=== PATIENT | male | born 1955 | race Caucasian/White ===

== ENCOUNTER 2017-12-22 14:20 | Outpatient (REF) | payer BC, SELFPAY ==
[2017-12-22 21:11] LABS: HCT 43.5 % (40.0-50.0); HGB 14.7 g/dL (13.5-17.5); Mean Corp. HGB Concentration 33.8 g/dL (32.0-36.0); Mean Corpuscular Hemoglobin 29.8 pg (27.0-33.0); Mean Corpuscular Volume 88.1 fL (80-95); Mean Platelet Volume 10.1 fL (8.0-11.0); Platelet Count 368 x1000/uL (130-400); RBC 4.94 m/cumm (4.50-6.00); RBC Distribution Width 13.2 % (11.8-14.1); White Blood Cell Count 5.81 k/cumm (4.4-10.8)
[2017-12-22 21:28] LABS: Prothrombin Time 9.6 sec (9.3-10.8)
[2017-12-22 21:44] LABS: ALT 37 U/L (12-78); AST 18 U/L (15-37); Albumin 4.2 g/dL (3.4-5.0); Alkaline Phosphatase 75 U/L (46-116); Anion Gap 10.1 mmol/L (3-11); BUN 18 mg/dL (7-18); Bilirubin, Total 0.5 mg/dL (0.2-1.0); CO2 25.9 mmol/L (21.0-32.0); Chloride 103 mmol/L (98-107); Glucose 89 mg/dL (70-100); Potassium 4.7 mmol/L (3.5-5.1); Sodium 139 mmol/L (136-145); Total Protein 7.5 g/dL (6.4-8.2)
[2017-12-24 13:26] LABS: Hepatitis C Ab w Rflx HCV PCR Negative (NEGAT)
== END 2017-12-22 14:40 ==
LOC: NCHCN 14:20
PROVIDERS: Visit Provider Internal Medicine
DX: Z89.419 Acquired absence of unspecified great toe (principal); Z11.59 Encounter for screening for other viral diseases; Z01.84 Encounter for antibody response examination; Z00.00 Encounter for general adult medical examination without abnormal findings
CPT/HCPCS: 80053; 85027; 86803; 85610; 85730

== ENCOUNTER 2017-12-25 11:16 | Outpatient (REF) | payer BC, SELFPAY ==
[2017-12-25 12:16] LABS: PTT Activated 25.4 sec (21.0-31.4)
== END 2017-12-25 11:36 ==
LOC: NCHCN 11:16
PROVIDERS: Visit Provider Internal Medicine
DX: Z89.419 Acquired absence of unspecified great toe (principal)
CPT/HCPCS: 85730

== ENCOUNTER 2019-04-22 08:28 | Outpatient (CLI) | payer BC, SELFPAY ==
[2019-04-22 10:27] LABS: TSH (W/Ref FT4) 0.95 uIU/mL (0.36-3.74)
[2019-04-22 21:55] LABS: T3,Free 3.3 pg/mL (2.8-5.3)
== END 2019-04-22 08:48 ==
PROVIDERS: PCP Internal Medicine; Visit Provider Physical Therapy Assistant
DX: E04.9 Nontoxic goiter, unspecified (principal)
CPT/HCPCS: 36415; 84443; 84481

== ENCOUNTER 2019-04-28 01:30 | Outpatient (CLI) | payer BC, SELFPAY ==
--- NOTE | 2019-04-28 12:37 | DI.US_ITS ---
EXAM: US THYROID CLINICAL HISTORY: Enlarged thyroid, difficulty swallowing E04.9 TECHNIQUE: Ultrasound performed using standard protocol. COMPARISON: No exams were available for comparison FINDINGS: Thyroid ultrasound was performed according to the usual protocol. Right thyroid lobe measures 43 x 2 0 x 14 millimeters. Left thyroid lobe measures 44 x 17 x 13 millimeters. The isthmus is about 7 mil limeters in thickness. Thyroid tissue is heterogeneous. No significant mass lesion identified. 6 millimeter focus of high echogenicity is noted in the medial inferior left thyroid lobe. IMPRESSION: Heterogeneous appearance of thyroid. Follow-up ultrasound suggested in 12 months to re-evaluate 6 mi llimeter echogenic focus of the left thyroid lobe.
== END 2019-04-28 01:50 ==
PROVIDERS: PCP Internal Medicine; Visit Provider Physical Therapy Assistant
DX: E04.9 Nontoxic goiter, unspecified (principal); R13.10 Dysphagia, unspecified
CPT/HCPCS: 76536

== ENCOUNTER 2019-05-09 09:04 | Day surgery (SDC) | payer BC, SELFPAY ==
--- NOTE | 2019-05-09 07:09 | W.COLOREPORT ---
Date of service: 05/09/19 Time of Service: 10:24 Colonoscopy Report Date of procedure: 05/09/19 Pre-op diagnosis general: Hx of polyps and Hx of Kaye's Post-op diagnosis procedure note: same Procedure: 1. EGD with bx 2. Colonoscopy with polypectomy Surgeon: Reva Petty Anesthesia proc note operative: other (General/ ASA 3/Yessica Gaona, JULISA) Estimated blood loss (mL): 5 Pathology: other (Gastric Bx, Ge junction bx, transverse polyp, sigmoid polyps x5) Complications: None Disposition: same day Indications: 64 y/o male with history of GERD presents for colonoscopy screening pre-op. His last screening was in 2007, which was remarkable for polyps. He denies a family history of colon cancer. He denies any changes in bowel habits including bloody or black tarry stools, abdominal pain, diarrhea or constipation. He denies constitutional symptoms. Denies use of marijuana or any other recreational or illegal drugs. EGD in 2010 was remarkable for Barretts esophagus. He describes feeling a lump in his throat for the past 6 months. He reports this makes swallowing uncomfortable. He denies any difficulty swallowing food or liquids or the sensation of choking. He denies having any pain in this area. Prep: Miralax/Dulcolax Procedure Start Time: 10:24 Procedure End Time: 11:14 Retraction Time: 27 minutes Findings: Upper- mild gastritis and evidence of reflux. Grossely there is some Kaye's identified as well Lower: multiple small polyps Procedure Description: After informed consent was obtained the patient was take to the procedure room and placed in a supine position. Monitors were applied and a time out was done. The patients name, date of , procedure type, allergies to medications and metal in their body was reviewed. A bite block was placed and the patient was sedated. Once sedated and comfortable the gastroscope was advanced through the oropharynx which was grossly normal into the esophagus. The proximal and mid-esophagus were normal. Peristalsis was noted. In the distal esophagus there was inflammation noted. The scope was advanced into the stomach and through the pylorus into the 3rd portion of the duodenum. The duodenum was noted to be normal. The scope was retracted back into the stomach. Mild inflammation was noted in the antrum. Biopsies were done to rule out H. pylori. There were no ulcers. The scope was retro-flexed. The cardia and fundus were noted to be normal. There was no hiatal hernia noted. The scope was retracted back into the esophagus and biopsies were done of the GE junction to rule out Kaye's. The Z line was irregular. The GE junction was at 40 cm. While the patient was still sedated they were placed in a left decubitous position. A rectal exam was done. External exam was normal. Internal exam revealed a normal sphincter tone and no palpable masses. I could not feel the prostate. The scope was then introduced and retro-flexed. No internal hemorrhoids were identified. The scope was then advanced to the cecum without difficulty. The TI and appendiceal orifice were identified. The prep was suboptimal. There was a lot of residual liquid stool and a lot of seeds. 1 L was used to irrigate the liquid stool. The scope was then slowly retracted over 27 minutes back into the rectum. Polyps were removed with cold forceps in the Transverse colon and sigmoid colon with cold forceps. The scope was removed and the patient was woken up and taken back to Same day surgery in stable condition. The patient tolerated the procedure well and there were no immediate complications. Follow up: 2 weeks in the office 3-5 years for the colonoscopy
--- NOTE | 2019-05-09 07:11 | W.PM.DSUDISC ---
Discharge Plan Disposition Patient Disposition: HOME Condition: Good Discharge Details Reason For Visit: Hx of polyps and Hx of Kaye's Attending Provider: Reva Petty Primary Care Provider: Rodney Cooley Home Meds and New Rx's Prescriptions: New omeprazole 40 mg capsule,delayed release(DR/EC) 40 mg PO DAILY Qty: 30 RF: 0 Continued quetiapine [Seroquel] 100 MG tablet 100 mg PO HS RF: 0 meloxicam 15 MG tablet 15 mg PO DAILY RF: 0 sumatriptan succinate 50 MG tablet 50 mg PO ONCE RF: 0 verapamil 180 MG capsule,ext rel. pellets 24 hr 180 mg PO HS RF: 0 acetaminophen 325 MG capsule 650 - 975 mg PO qpm prn RF: 0 COMBIVENT RESPIMAT INHAL SPRAY 4 GM AER.W.ADAP 1 puff AD QID RF: 0 gabapentin 300 mg capsule 300 mg PO TID RF: 0 albuterol sulfate [ProAir HFA] 90 mcg/actuation HFA aerosol inhaler 1 puff IH ONCE RF: 0 Discontinued polyethylene glycol 3350 17 gram/dose powder 238 g PO ONCE Qty: 238 RF: 0 bisacodyl [Dulcolax (bisacodyl)] 5 mg tablet,delayed release (DR/EC) 5 mg PO ONCE Qty: 4 RF: 0 ibuprofen 600 MG tablet 600 mg PO PRN RF: 0 omeprazole 20 MG capsule,delayed release(DR/EC) 20 mg PO HS RF: 0 Discharge Instructions Instructions: Kaye Esophagus (GEN), Colorectal Polyps (DC) Additional Instructions: Findings: 1. Inflammation of the esophagus 2. Polyps x6 Follow up: 3-5 years Other: A new Rx for Omeprazole 40 mg was sent in to your pharmacy. Take 40 mg daily x 30 days Avoid Ibuprofen on top of Meloxicam Please call if you develop: fevers >101.5 Nausea or Vomiting Abdominal pain that is not transient DAY SURGERY UNIT POST ENDOSCOPY INSTRUCTIONS 1. Because there will be medication in your system for the next 24 hours, you may feel a little sleepy. Your coordination will be affected. Therefore: a. Do not drive or operate dangerous equipment for 24 hours. b. Do not drink alcohol beverages for 24 hours (not even beer). c. Plan to go home and rest for the day. 2. Generally there are no restrictions on your activity after a day or so has gone by, but you may feel a bit fatigued for a few days. 3 After you arrive home you may have a light meal and return to a normal diet as you can tolerate it without feeling sick to your stomach. 4. After surgery, you may feel pain or discomfort. This should be only transient, but if it persists please contact your doctor. 5. If there are any questions regarding the findings of your procedure, please feel free to contact your doctor. 6. If you are unable to contact your doctor with a problem, contact the hospital at [phone]. 7. Continue all your regular medications unless directed otherwise. I understand the above instructions and have no questions. Signature of Patient or Responsible Adult Escort Date/Time Name of Responsible Adult Escort Signature of Nurse Date/Time Activity:: Activity as Tolerated Diet:: As Tolerated Discharge Orders Discharge Orders: Discharge Order (Routine); Ordered 05/09/19 Ordered By: Reva Petty
[2019-05-09 09:29] VITALS: BP 121/82; PULSE 75; RESP 18; TEMP 37; O2SAT 93
[2019-05-09] MEDS: Lactated Ringers 1,000 ML 80 ML IV (09:59)
--- NOTE | 2019-05-09 10:30 | BOWEL_PTH ---
PATIENT: Jm Albrecht LOC: [facility] U#:[id number] AGE/SX: 64/M ROOM: RE05/09/[address]: Reva Petty MD : [id number] BED: DIS: 05/09/2019 SPEC #: [id number] RECD: 05/09/19 12:42 STATUS: MICHELLE REQ #: [id number] CLAIRE: 05/09/19 10:[address]: Reva Petty DEPT: Surgical Specimen RECD BY: Ashleigh Teixeira ENTERED: 05/09/19 12:44 SP TYPE: Bowel OTHR DR: Rodney Cooley Tissues: 1 - STOMACH BIOPSY 2 - ESOPHAGUS BIOPSY 3 - BIOPSY BOWEL 4 - BIOPSY BOWEL Procedures: GROSS AND MICRO LEVEL 4 Comments: [id number]
[2019-05-09 12:06] VITALS: BP 105/59; PULSE 59; RESP 16; TEMP 36; O2SAT 96
== END 2019-05-09 12:24 | disposition home or self-care (01) ==
LOC: SUR 09:04
PROVIDERS: PCP Internal Medicine; Visit Provider Surgery
PROC: (CPT 45380; principal; 2019-05-09 09:45)
DX: Z12.11 Encounter for screening for malignant neoplasm of colon (principal); D12.5 Benign neoplasm of sigmoid colon; K63.5 Polyp of colon; K22.70 Barrett's esophagus without dysplasia; J44.9 Chronic obstructive pulmonary disease, unspecified; K21.9 Gastro-esophageal reflux disease without esophagitis
CPT/HCPCS: 45380; 43239; 88305; J2704

== ENCOUNTER 2019-05-25 02:20 | Outpatient (CLI) | payer BC, SELFPAY ==
--- NOTE | 2019-05-25 | PFT_ITS ---
PULMONARY FUNCTION TEST REPORT Patient - Jm Albrecht DATE OF SERVICE May 25, 2019 REQUESTING PROVIDER Rodney Cooley M.D. INTERPRETATION OF STUDY Spirometry shows moderately severe obstructive airways disease with significant bronchodilator response. LUNG VOLUMES - Lung volumes show no evidence of restriction. There is moderate hyperinflation and air trapping. DIFFUSION CAPACITY- Normal. AIRWAY RESISTANCE - Normal. IMPRESSION Moderately severe obstructive airways disease with significant bronchodilator response. This is associated with moderate hyperinflation and air trapping. When this study was compared to previous one from 03/21/16, the patient has a total of 760 cc decline in FVC. FEV1 has declined by 1010 cc. This is a significant interval decline. Clinical correlation recommended. Amber Gonzalez M.D. KRISTAL/ T- 05/27/19
[2019-05-25] MEDS: Inhaler, Assist Device 1 EACH MC (11:00)
[2019-05-25] MEDS: Albuterol HFA 18 GM 200 PUFF INH IH (11:00)
== END 2019-05-25 02:40 ==
PROVIDERS: PCP Internal Medicine; Visit Provider Internal Medicine
DX: R05 Cough (principal); J98.8 Other specified respiratory disorders
CPT/HCPCS: 94060; 94726; 94729

== ENCOUNTER 2019-06-03 16:53 | Outpatient (REF) | payer BC, SELFPAY ==
[2019-06-03 19:53] LABS: BUN 24 mg/dL (7-18); CREATININE 0.91 mg/dL (0.70-1.30); Calcium 8.4 mg/dL (8.5-10.1); Chloride 106 mmol/L (98-107); Glucose 130 mg/dL (74-106); NT-proBNP 11 pg/mL (<300); Potassium 4.2 mmol/L (3.5-5.1); Sodium 143 mmol/L (136-145)
[2019-06-03 19:57] LABS: Hemoglobin A1C 5.9 % (3.8-5.6)
[2019-06-06 10:26] LABS: IgE 29 IU/mL (<158)
== END 2019-06-03 17:13 ==
LOC: NCHCN 16:53
PROVIDERS: PCP Internal Medicine; Visit Provider Internal Medicine
DX: Z00.00 Encounter for general adult medical examination without abnormal findings (principal); R06.09 Other forms of dyspnea; E66.9 Obesity, unspecified; R73.9 Hyperglycemia, unspecified
CPT/HCPCS: 80048; 82785; 83036; 83880

== ENCOUNTER 2019-06-10 02:16 | Outpatient (CLI) | payer BC, SELFPAY ==
[2019-06-10] MEDS: Omnipaque 350 MG/ML 100 ML BTL IJ (13:56)
--- NOTE | 2019-06-10 14:25 | DI.CT_ITS ---
EXAM: CT CHEST W CLINICAL HISTORY: EXERTIONAL DYSPNEA, R06.09; CHRONIC COUGH, R05 TECHNIQUE: Imaging Protocol: Axial computed tomography images with coronal and sagittal reformatted images were created and reviewed CONTRAST MATERIAL: Intravenous: Omnipaque 350 Contrast volume:70 mL. COMPARISON: CHEST - LUNG CANCER SCREENING from 03/13/2016 FINDINGS: Tracheobronchial tree: Patent where visualized. Mediastinum and Mary: No dominant adenopathy or fluid collection. Pulmonary parenchyma: There is scarring or atelectasis in the left lingula and the lower lobes bilate rally. No focal consolidating infiltrates are present. Pleura: No effusion or pneumothorax. Heart: The heart is not dilated. Mild coronary artery calcification. No pericardial effusion. Aorta: Thoracic aorta non-dilated. Atherosclerosis. Upper abdomen: Unremarkable. Lymph nodes: Within normal limits. Bones: Degenerative changes. IMPRESSION: No acute pulmonary process. DATA REPOSITORY: All CT scans at this facility are submitted to the National Radiology Data Registry (NRDR) Dose Index Registry (DIR) with the [employer] (ACR). RADIATION OPTIMIZATION: All CT scans at this facility use at least one of these dose optimization te chniques: automated exposure control; mA and/or kV adjustment per patient size (includes targeted exa ms where dose is matched to clinical indication); or iterative reconstruction.
== END 2019-06-10 02:36 ==
PROVIDERS: PCP Internal Medicine; Visit Provider Internal Medicine
DX: R06.09 Other forms of dyspnea (principal); R05 Cough
CPT/HCPCS: 71260; J3490

== ENCOUNTER 2019-06-16 00:35 | Outpatient (CLI) | payer BC, SELFPAY ==
--- NOTE | 2019-06-16 | DI.US_ITS ---
APPROVED REPORT EXAM: Comprehensive 2D, Doppler, and color-flow Echocardiogram Patient Location: Out-Patient [facility] Acoustic Analyst: Jacqueline Dickson RDCS (AE) Indications: Exertional Dyspnea Other Information Study Quality: Adequate. Technically limited study due to body habitus. Conclusion Left Ventricle : The left ventricle is normal size. The left ventricular systolic function is normal. The left ventricular ejection fraction is within the normal range. There is normal left ventricular wall thickness. There is normal LV segmental wall motion. The left ventricular diastolic function is normal. LVEF is 55-60%. Right Ventricle : The right ventricle is normal size. The right ventricular systolic function is norm al. Atria : The left atrium size is normal. The right atrium size is normal. Valves: There are no hemodynamically significant valvular lesions. Great Vessels : IVC is normal in size and collapses >50% with inspiration. There is none of tricuspi d regurgitation to estimate RVSP. There is no prior echocardiogram available for comparison. Wall motion Left Ventricle The left ventricle is normal size. The left ventricular systolic function is normal. The left ventric ular ejection fraction is within the normal range. There is normal left ventricular wall thickness. T here is normal LV segmental wall motion. The left ventricular diastolic function is normal. There is no ventricular septal defect visualized. LVEF is 55-60%. Right Ventricle The right ventricle is normal size. The right ventricular systolic function is normal. Atria The left atrium size is normal. The right atrium size is normal. The interatrial septum is intact wit h no evidence for an atrial septal defect. Aortic Valve Aortic valve is trileaflet. There is no aortic valvular stenosis. No aortic regurgitation is present. Mitral Valve The mitral valve is normal in structure. No evidence of mitral valve stenosis. Trace mitral regurgita tion. Tricuspid Valve The tricuspid valve is normal in structure. There is no tricuspid valve stenosis. Trace tricuspid reg urgitation. Pulmonic Valve Pulmonic valve is not well visualized. There is no pulmonic valvular stenosis. Trace pulmonic regurgi tation. Great Vessels The aortic root is normal in size. The ascending aorta is normal in size. IVC is normal in size and c ollapses >50% with inspiration. There is none of tricuspid regurgitation to estimate RVSP. Pericardium There is no pericardial effusion. 2D Dimensions IVSD d PLAX 1.08 cm M: 0.6-1.2 LV Vol A2C d MOD 125.0 mL LVPW d PLAX 1.05 cm M: 0.6 - 1.2 LV Vol A4C d MOD 93.0 mL LVID d PLAX 4.68 cm M: 4.2 - 5.8 LA vol/ BSA A2C s A-L 29.2 mL/m2 LVDs 3.40 cm M: 2.5 - 4.0 LA vol/ BSA A4C s A-L 17.9 mL/m2 Ao Root d 3.15 cm M: 3.1 - 3.7 LA Vol/ BSA Biplane s A-L 24.8 mL/m2 RA Area A4C 13.41 cm2 LA Area A4C s MOD 14.64 cm2 RA Vol/ BSA A4C s A-L 16.8 mL/m2 LA Area A2C s MOD 20.30 cm2 Ao Asc Diam d 3.81 cm M: 2.6 - 3.4 LV EF A4C MOD 59.8 % LV EF Teichholz 51.7 % LV EF A2C MOD 55.2 % LVEF (Castañeda's) 57.27 % M: 52 - 72 LV EF Biplane MOD 57.3 % LV Volume 79.23 mL M: 62 - 150 LV Volume Index 35.52 mL/m2 M: 34 - 74 LV Vol Biplane MOD 109.4 mL FS 26.40 % M-Mode TAPSE 2.44 cm (M/F) <1.7 LV Diastology MV E' medial 0.083 (>0.07 m/s) E/A Ratio 1.1 LV E/e MED 9.95 (<14) MV E Vmax 0.83 (0.4-1.3 m/s) MV E' lateral 0.137 (>0.1 m/s) MV A Vmax 0.75 (0.4-1.3 m/s) LV E/e LAT 6.00 (<14) MV E/A Ratio 1.05 MV E/E' medial 9.96 MV E/E' lateral 6.05 Aortic Valve LVOT Area 2.82 cm2 AoV Area Vmax 2.31 cm2 LVOT Vmax 1.23 m/s AoV Area/ BSA (Vmax) 1.04 cm2/m2 LVOT Mean Marcus. 0.77 m/s CARROL Mean Marcus. 2.19 cm2 LVOT Peak Grad 6.0 mmHg CARROL Mean Marcus. Index 0.98 cm2/m2 LVOT Mean Grad 2.9 mmHg LVOT VTI 0.213 m LVOT Diam s 1.85 cm (M/F) 1.5-2.5 AoV Vmax 1.50 (0.5-1.3 m/s) Velocity Ratio 0.82 AoV Mean Marcus. 0.99 m/s AoV Peak Grad 8.9 mmHg LVOT SV 59.86 mL AoV Mean Grad 4.5 (<5 mmHg) AoV VTI 0.268 (0.18-0.25 m) AoV Area VTI 2.23 (2.5-4.5 cm2) AoV Area/ BSA (VTI) 1.00 cm/m2 Mitral Valve MV DT 235 (160-240 msec) MV PHT 68 msec MV Area PHT 3.23 cm2 Pulmonary Valve PV Vmax 1.20 (0.5-1.5 m/s) RVOT Peak Gr. 3.11 mmHg PV Peak Grad 5.7 mmHg RVOT Mean Gr. 1.40 mmHg PV Mean Grad 3.2 mmHg RVOT VTI 0.162 m PV VTI 0.223 m RVOT Vmax 0.88 m/s
== END 2019-06-16 00:55 ==
PROVIDERS: PCP Internal Medicine; Visit Provider Internal Medicine
DX: R06.09 Other forms of dyspnea (principal)
CPT/HCPCS: 93306

== ENCOUNTER 2019-10-25 08:08 | Emergency (ER) | payer BC, SELFPAY ==
[2019-10-25] VITALS (44 sets, daily range): BP systolic 100–130; BP diastolic 60–92; PULSE 48–77; RESP 11–21; TEMP 36.3–36.6; O2SAT 88–95
--- NOTE | 2019-10-25 08:00 | RT.EKG_ITS ---
APPROVED REPORT Exam: Resting ECG Patient Location: E HR:55 bpm ECG Measurements Heart Rate 55 AXIS KS 155 P 18 QRSd 161 QRS 65 QT 452 T 19 QTc 433 <Conclusion> Sinus bradycardia...rate< 60 Right bundle branch block...QRSd>120, terminal axis(90,270). No acute ST elevation or depression. No old EKG to compare.
[2019-10-25 08:34] LABS: Abs Immature Grans 0.01 k/cumm (0.0-0.09); Absolute Basophil Count 0.02 k/cumm (0.0-0.2); Absolute Eosinophil Count 0.15 k/cumm (0.0-0.7); Absolute Monocyte Count 0.36 k/cumm (0.11-0.7); Absolute Neutrophil Count 2.57 k/cumm (1.2-6.7); Basophils % 0.4; Eosinophils % 3.3; HCT 42.7 % (40.0-50.0); HGB 14.2 g/dL (13.5-17.5); Immature Grans % 0.2 %; Lymphocytes % 32.5; Mean Corp. HGB Concentration 33.3 g/dL (32.0-36.0); Mean Corpuscular Hemoglobin 29.5 pg (27.0-33.0); Mean Corpuscular Volume 88.6 fL (80-95); Mean Platelet Volume 9.3 fL (8.0-11.0); Monocytes % 7.8; Neutrophils % 55.8; Platelet Count 298 x1000/uL (130-400); RBC 4.82 m/cumm (4.50-6.00); RBC Distribution Width 13.5 % (11.8-14.1); White Blood Cell Count 4.61 k/cumm (4.4-10.8)
--- NOTE | 2019-10-25 08:38 | W.ED.GENAD ---
Discharge Plan Disposition Patient Disposition: HOME Condition: Improving Discharge Details Chief Complaint: Dizzy/Sync Clinical Impression: Syncope, Nausea Primary Care Provider: Rodney Cooley ED Provider: Gayathri Rodriguez Home Meds and New Rx's Prescriptions: New ondansetron 4 mg tablet,disintegrating 4 mg PO TID PRN (Reason: nausea and vomiting) Qty: 6 RF: 0 Continued quetiapine [Seroquel] 100 MG tablet 100 mg PO HS RF: 0 meloxicam 15 MG tablet 15 mg PO HS RF: 0 sumatriptan succinate 50 MG tablet 50 mg PO ONCE PRNRF: 0 verapamil 180 MG capsule,ext rel. pellets 24 hr 180 mg PO HS RF: 0 gabapentin 300 mg capsule 300 mg PO TID RF: 0 albuterol sulfate [ProAir HFA] 90 mcg/actuation HFA aerosol inhaler 2 puff IH Q4H PRNRF: 0 omeprazole 40 mg capsule,delayed release(DR/EC) 40 mg PO HS RF: 0 Anoro Ellipta 62.5-25 mcg/actuation blister with device 1 inh INHALATION HS RF: 0 Discharge Instructions Instructions: Syncope (ED), Acute Nausea and Vomiting (ED) Additional Instructions: Drink plenty of fluids and get plenty of rest. Call your primary care doctor today to schedule a follow-up appointment for reevaluation and for referral for outpatient environmental monitoring technician such as Zio patch for further evaluation of your rare fainting episodes to rule out an abnormal heart rhythm as a possible cause. Return immediately to the emergency department if he develop any worsening or new concerning symptoms. Discharge Data Discharge Physician: Gayathri Rodriguez Medical Decision Making 0815 -- 64-year-old male with a history of COPD, obesity, cluster headaches, PTSD presents after syncopal episode this morning after feeling dizziness and nausea. EKG on arrival notes a rate of 55, sinus, right bundle branch block with no acute ST ischemic changes. Patient appears in no acute distress. O2 sat 91 to 93% on room air, unsure if this is his baseline with his history of COPD. Remainder of vitals within normal limits. No acute findings on exam. No focal deficits. Differential diagnosis includes dehydration, GI illness, arrhythmia, electrolyte abnormality, acute CVA. Will place an IV, bolus IV fluids, screening labs, urinalysis, chest x-ray and CT head and cervical spine and reassess. 1100 --labs and imaging reviewed and unremarkable. D-dimer negative for age-adjusted cut off. Urinalysis negative. Imaging negative. Orthostats obtained and within normal limits. Patient is requesting to go home. He was able to ambulate and denied any dizziness. As patient has had multiple syncopal episodes in the past, however last episode occurring 20 years ago, may be related to vasovagal syncope. He is advised to follow-up with his primary care doctor and for consideration for outpatient Zio patch. Usual and customary return precautions given prior to discharge. Medical Records Medical records reviewed: Yes I reviewed the patient's medical records. Imaging Data Radiologic Study: Radiologist's impression: CT HEAD CERVICAL SPINE WO CLINICAL HISTORY: syncope, r/o intracranial injury. TECHNIQUE: Imaging Protocol: Axial computed tomography images with coronal and sagittal reformatted images were created and reviewed COMPARISON: No exams were available for comparison FINDINGS: Head CT Ventricles and Extra axial spaces: Normal in size and morphology for the patient's age. Hemorrhage: None. Cerebral parenchyma: Normal. Midline shift: None. Brainstem/Cerebellum: Normal. Calvarium: Normal. Visualized Paranasal sinuses/Mastoids: Mild ethmoid sinus disease.. Cervical Spine CT BONES: Vertebral body heights are maintained. . Alignment is normal. There is no evidence of acute fracture. SOFT TISSUES: No paraspinal hematoma. The airway appears intact. Degenerative disc changes and facet degenerative changes are seen . IMPRESSION: No acute abnormality. XR CHEST 2V PA LATERAL CLINICAL HISTORY: syncope, nausea, r/o acute disease TECHNIQUE: 2D digital imaging was performed. COMPARISON: No exams were available for comparison FINDINGS: MEDIASTINUM: Normal. HEART: Normal. Minimal linear scarring or atelectasis at the posterior lung bases. PLEURAL SPACE: No pleural effusion or pneumothorax. BONE:Mild degenerative changes in the thoracic spine. IMPRESSION: No acute pulmonary findings. Lab Data Lab results reviewed: Yes I reviewed the patient's lab results. Labs: 10/25/19 09:23 Urine - Reflex from Ua Urine Culture - Pending Laboratory Tests Range/Units 10/25/19 10/25/19 10/25/19 08:14 08:20 08:20 WBC (4.4-10.8) k/cumm 4.61 RBC (4.50-6.00) m/cumm 4.82 Hgb (13.5-17.5) g/dL 14.2 Hct (40.0-50.0) % 42.7 MCV (80-95) fL 88.6 MCH (27.0-33.0) pg 29.5 MCHC (32.0-36.0) g/dL 33.3 RDW (11.8-14.1) % 13.5 Plt Count (130-400) x1000/uL 298 MPV (8.0-11.0) fL 9.3 Immature Gran % % 0.2 Neutrophils % 55.8 Lymphocytes % 32.5 Monocytes % 7.8 Eosinophils % 3.3 Basophils % 0.4 Absolute Neutrophils (1.2-6.7) k/cumm 2.57 Absolute Lymphocytes (1.2-3.4) k/cumm 1.50 Absolute Monocytes (0.11-0.7) k/cumm 0.36 Absolute Eosinophils (0.0-0.7) k/cumm 0.15 Absolute Basophils (0.0-0.2) k/cumm 0.02 D-Dimer (<500) ng/mlFEU 511 H Sodium (136-145) mmol/L 140 Potassium (3.5-5.1) mmol/L 3.7 Chloride (98-107) mmol/L 106 Carbon Dioxide (21.0-32.0) mmol/L 25.9 Anion Gap (3-11) mmol/L 8.1 BUN (7-18) mg/dL 26 H Creatinine (0.70-1.30) mg/dL 0.80 Estimated GFR/1.73 m2 (mL/min/1.73m2) >= 60.00 Glucose (74-106) mg/dL 105 Calcium (8.5-10.1) mg/dL 8.5 Magnesium (1.8-2.4) mg/dL 2.0 Total Bilirubin (0.2-1.0) mg/dL 0.4 AST (15-37) U/L 23 ALT (16-63) U/L 40 Alkaline Phosphatase (46-116) U/L 64 Troponin I (<0.06) ng/mL < 0.05 Total Protein (6.4-8.2) g/dL 7.0 Albumin (3.4-5.0) g/dL 3.7 Urine Color (Yellow) Urine Clarity (Clear) Urine pH (5-8) Ur Specific Browning (1.005-1.025) Urine Protein (Negative) mg/dL Urine Ketones (Negative) mg/dL Urine Blood (Negative) Urine Nitrite (Negative) Urine Bilirubin (Negative) Urine Urobilinogen (Up TO 0.2) EU/dL Ur Leukocyte Esterase (Negative) Urine RBC (0-2) HPF Urine WBC (0-5) HPF Ur Epithelial Cells (Negative) HPF Urine Crystals (Negative) HPF Urine Bacteria (Negative) HPF Urine Casts (Negative) LPF Urine Mucus (Negative) Urine Other (Negative) Ur Culture Indicated? Urine Glucose (Negative) mg/dL Range/Units 10/25/19 09:23 WBC (4.4-10.8) k/cumm RBC (4.50-6.00) m/cumm Hgb (13.5-17.5) g/dL Hct (40.0-50.0) % MCV (80-95) fL MCH (27.0-33.0) pg MCHC (32.0-36.0) g/dL RDW (11.8-14.1) % Plt Count (130-400) x1000/uL MPV (8.0-11.0) fL Immature Gran % % Neutrophils % Lymphocytes % Monocytes % Eosinophils % Basophils % Absolute Neutrophils (1.2-6.7) k/cumm Absolute Lymphocytes (1.2-3.4) k/cumm Absolute Monocytes (0.11-0.7) k/cumm Absolute Eosinophils (0.0-0.7) k/cumm Absolute Basophils (0.0-0.2) k/cumm D-Dimer (<500) ng/mlFEU Sodium (136-145) mmol/L Potassium (3.5-5.1) mmol/L Chloride (98-107) mmol/L Carbon Dioxide (21.0-32.0) mmol/L Anion Gap (3-11) mmol/L BUN (7-18) mg/dL Creatinine (0.70-1.30) mg/dL Estimated GFR/1.73 m2 (mL/min/1.73m2) Glucose (74-106) mg/dL Calcium (8.5-10.1) mg/dL Magnesium (1.8-2.4) mg/dL Total Bilirubin (0.2-1.0) mg/dL AST (15-37) U/L ALT (16-63) U/L Alkaline Phosphatase (46-116) U/L Troponin I (<0.06) ng/mL Total Protein (6.4-8.2) g/dL Albumin (3.4-5.0) g/dL Urine Color (Yellow) Yellow Urine Clarity (Clear) Clear Urine pH (5-8) 6.0 Ur Specific Browning (1.005-1.025) >= 1.030 H Urine Protein (Negative) mg/dL Trace H Urine Ketones (Negative) mg/dL Negative Urine Blood (Negative) Negative Urine Nitrite (Negative) Negative Urine Bilirubin (Negative) Negative Urine Urobilinogen (Up TO 0.2) EU/dL 0.2 Ur Leukocyte Esterase (Negative) Negative Urine RBC (0-2) HPF 0-2 Urine WBC (0-5) HPF 0-2 Ur Epithelial Cells (Negative) HPF Negative Urine Crystals (Negative) HPF Negative Urine Bacteria (Negative) HPF Few Urine Casts (Negative) LPF Negative Urine Mucus (Negative) Moderate Urine Other (Negative) Negative Ur Culture Indicated? Yes Urine Glucose (Negative) mg/dL Negative ECG Data Attestation: I personally reviewed and interpreted this ECG (s) as follows: Interpretation: Rate of 55, sinus, right bundle branch block. No acute ST ovation or depression. No old EKG to compare. UT 155. QTc 433. HPI General Mode of arrival: EMS. Date/Time Provider Initiated Documentation: 10/25/19 08:11. Limitations to Documentation: no limitations. Information obtained by: patient. HPI Narrative: Patient is a 64-year-old male with a history of COPD, former tobacco smoker, cluster migraines, PTSD presents for evaluation after syncopal episode this morning. Patient states when he awoke this morning he felt very fatigued. Patient states he was drinking a cup of coffee this morning at home when he felt nausea. He states he got up to walk to the bathroom to possibly vomit and felt dizzy and lightheaded and passed out. He states he scraped his left knee but denies any injury. He denies any other pain or injury and does not think he hit his head. Patient states he has had a similar history occur approximately 5 times previously, most recently approximately 20 years ago. Patient has been taking his medication regularly. He states he drank 3 cups of coffee yesterday and 3 cups of small water. He states he went to bed last night feeling fine. He denies any recent illness, fever, vomiting, diarrhea, chest pain, shortness of breath, palpitations, abdominal pain, urinary symptoms, headache, neck or back pain. He denies any recent medication additions or changes. He denies any recent hospital admission or known sick contacts. Patient states he has been traveling to his other residence in the [facility] every week and recently. Related Data Home Medications Medication Instructions Recorded Confirmed quetiapine [Seroquel] 100 mg PO HS 08/09/12 10/25/19 meloxicam 15 mg PO HS tab-cap 09/15/17 10/25/19 sumatriptan succinate 50 mg PO ONCE PRN tab-cap 09/15/17 10/25/19 verapamil 180 mg PO HS tab-cap 09/15/17 10/25/19 albuterol sulfate 90 mcg/actuation 2 puff IH Q4H PRN 03/25/19 10/25/19 aerosol inhaler gabapentin 300 mg capsule 300 mg PO TID 03/25/19 10/25/19 Anoro Ellipta 1 inh INHALATION 10/25/19 10/25/19 omeprazole 40 mg PO 10/25/19 10/25/19 ondansetron 4 mg PO TID PRN #6 tab 10/25/19 Previous Rx's Medication Instructions Recorded ondansetron 4 mg PO TID PRN #6 tab 10/25/19 Allergies Allergy/AdvReac Type Severity Reaction Status Date / Time No Known Allergies Allergy Unverified 10/25/19 09:31 General Stated Complaint: Dizzy/Sync WILLIAM: 2 Review of Systems All systems reviewed & are unremarkable except as noted in HPI and below Constitutional Constitutional: Reports as per HPI, Denies chills and Denies fever(s) Eyes Eyes: Denies blurry vision ENT Ears, Nose, Mouth, and Throat: Denies dizziness, Denies sore throat and Denies throat swelling Cardiovascular Cardiovascular: Denies chest pain, Reports syncope and Denies dyspnea Respiratory Respiratory: Denies cough and Denies dyspnea Gastrointestinal Gastrointestinal: Denies abdominal pain, Denies diarrhea, Reports nausea and Denies vomiting Genitourinary Genitourinary: Denies hematuria and Denies dysuria Musculoskeletal Musculoskeletal: Denies back pain and Denies numbness Integumentary/Breasts Skin/Breast: Denies lesions and Denies rash Neurologic Neurologic: Denies dizziness, Reports syncope, Denies localized weakness and Denies numbness Allergic/Immunologic Allergic/Immunologic: Denies throat swelling [facility] Medical History (Updated 10/25/19 @ 11:47 by Gayathri Rodriguez DO) Acute nontraumatic kidney injury Pt. denies this Amputated great toe (Acute) Atypical chest pain f/u with Dr. Cooley Pt. states he has heaviness on chest, but not cardiac related, states he had it worked up by by key operator, was diagnosed with emphysema Kaye's esophagus Ceruminosis (Acute) Cluster headaches COPD (chronic obstructive pulmonary disease) DIVERTICULOSIS SIGMOID Dyspnea on exertion Emphysema lung GERD Hammer toe (Acute) Hiatal hernia History of tobacco abuse Impacted cerumen, left ear Obesity (BMI 30.0-34.9) Osteoarthritis of knees, bilateral Pain in right lower leg Phantom limb pain (Acute) PTSD (post-traumatic stress disorder) Surgical History (Updated 05/31/19 @ 07:12 by Sunita Mcqueen RN) Colonoscopy - IV Sedation (~2007) EGD - IV Sedation (~2010) History of colonoscopy (Chronic ~04/2019) 2020 - tubular adenoma x3. MENISCUS REPAIR R Social History Smoking/Tobacco Use Status: Former Tobacco Use Quit Date: 01/28/19 Alcohol Intake: current Alcohol Intake frequency: a few times a month Drug use: Daily Substance use type: marijuana Do you feel safe at home: Yes Do you feel safe in your relationship?: Yes Exam Const General: cooperative and healthy appearing Orientation: alert and awake [facility] Head: normal to inspection Ears: hearing grossly normal bilaterally and external ears normal General nose exam: external nose normal Face and sinus: normal facial exam Mouth: oral mucosae normal Teeth and gingiva: dentition normal Throat: posterior oropharynx normal Eyes General: appearance normal, both eyes and all related structures Eyelids: eyelids normal Pupils: PERRL EOM: EOM intact bilaterally Neck Neck: normal visual inspection Lymphatic: no lymphadenopathy noted Chest Chest: normal inspection of the chest Resp Effort & Inspection: normal respiratory effort and able to speak in complete sentences Auscultation: clear to auscultation bilaterally Cardio Rate: regular rate Rhythm: regular rhythm GI Inspection: normal to inspection Palpation: soft, not firm, no guarding, no hepatosplenomegaly, no masses and nontender Auscultation: normal bowel sounds Back/Spine/Pelvis Cervical Spine: No cervical spinal tenderness Thoracic/Lumbar Spine: thoracic and lumbar spine normal to inspection, No thoracic spinal tenderness and No lumbar spinal tenderness Skin General skin exam: no rashes or lesions noted Neuro General: patient alert, patient awake and CN's II-XI intact bilaterally Cognition: normal cognition Speech: speech normal Gait: normal gait Motor: muscle tone normal throughout and strength 5/5 throughout Sensory Exam: no sensory deficits noted Extrem General: normal to inspection, full ROM and capillary refill normal Psych Appearance: grossly normal Mental Status: mental status grossly normal Speech and Movement: speech and movement normal Affect: normal affect Thought Process: normal Course Vital Signs Vital signs: Vital Signs Temperature 97.3 F L 10/25/19 08:02 Pulse 60 10/25/19 08:02 Respiratory Rate 20 10/25/19 08:02 Blood Pressure 121/60 10/25/19 08:02 Pulse Oximetry 91 L 10/25/19 08:02 Temperature 97.3 F L 10/25/19 08:02 Temperature Source Skin 10/25/19 08:02 Pulse 55 L 10/25/19 08:16 Pulse 58 L 10/25/19 08:20 Respiratory Rate 19 10/25/19 08:20 Respiratory Effort Non-Labored 10/25/19 08:28 Blood Pressure 112/68 10/25/19 08:16 Blood Pressure Mean 78 10/25/19 08:16 Blood Pressure Position Sitting 10/25/19 08:02 Pulse Oximetry 90 L 10/25/19 08:16 Oxygen Delivery Method Room Air 10/25/19 08:02 Oxygen Flow Rate 0 10/25/19 08:02 Pain Level 0 10/25/19 08:02 Lab/Test Results Lab/Test Results: Laboratory Tests Range/Units 10/25/19 08:14 WBC (4.4-10.8) k/cumm 4.61 RBC (4.50-6.00) m/cumm 4.82 Hgb (13.5-17.5) g/dL 14.2 Hct (40.0-50.0) % 42.7 MCV (80-95) fL 88.6 MCH (27.0-33.0) pg 29.5 MCHC (32.0-36.0) g/dL 33.3 RDW (11.8-14.1) % 13.5 Plt Count (130-400) x1000/uL 298 MPV (8.0-11.0) fL 9.3 Immature Gran % % 0.2 Neutrophils % 55.8 Lymphocytes % 32.5 Monocytes % 7.8 Eosinophils % 3.3 Basophils % 0.4 Absolute Neutrophils (1.2-6.7) k/cumm 2.57 Absolute Lymphocytes (1.2-3.4) k/cumm 1.50 Absolute Monocytes (0.11-0.7) k/cumm 0.36 Absolute Eosinophils (0.0-0.7) k/cumm 0.15 Absolute Basophils (0.0-0.2) k/cumm 0.02
--- NOTE | 2019-10-25 08:45 | DI.RAD_ITS ---
EXAM: XR CHEST 2V PA LATERAL CLINICAL HISTORY: syncope, nausea, r/o acute disease TECHNIQUE: 2D digital imaging was performed. COMPARISON: No exams were available for comparison FINDINGS: MEDIASTINUM: Normal. HEART: Normal. Minimal linear scarring or atelectasis at the posterior lung bases. PLEURAL SPACE: No pleural effusion or pneumothorax. BONE:Mild degenerative changes in the thoracic spine. IMPRESSION: No acute pulmonary findings. DATA REPOSITORY: RADIATION DOSE DELIVERED:
--- NOTE | 2019-10-25 08:45 | DI.CT_ITS ---
EXAM: CT HEAD CERVICAL SPINE WO CLINICAL HISTORY: syncope, r/o intracranial injury. TECHNIQUE: Imaging Protocol: Axial computed tomography images with coronal and sagittal reformatted images were created and reviewed COMPARISON: No exams were available for comparison FINDINGS: Head CT Ventricles and Extra axial spaces: Normal in size and morphology for the patient's age. Hemorrhage: None. Cerebral parenchyma: Normal. Midline shift: None. Brainstem/Cerebellum: Normal. Calvarium: Normal. Visualized Paranasal sinuses/Mastoids: Mild ethmoid sinus disease.. Cervical Spine CT BONES: Vertebral body heights are maintained. . Alignment is normal. There is no evidence of acute fr acture. SOFT TISSUES: No paraspinal hematoma. The airway appears intact. Degenerative disc changes and facet degenerative changes are seen . IMPRESSION: No acute abnormality. RADIATION DOSE DELIVERED: Total DLP DATA REPOSITORY: All CT scans at this facility are submitted to the National Radiology Data Registry (NRDR) Dose Index Registry (DIR) with the [employer] (ACR). RADIATION OPTIMIZATION: All CT scans at this facility use at least one of these dose optimization te chniques: automated exposure control; mA and/or kV adjustment per patient size (includes targeted exa ms where dose is matched to clinical indication); or iterative reconstruction.
[2019-10-25] MEDS: Normal Saline 1,000 ML 1000 ML IV (09:17)
[2019-10-25 09:26] LABS: ALT 40 U/L (16-63); AST 23 U/L (15-37); Albumin 3.7 g/dL (3.4-5.0); Alkaline Phosphatase 64 U/L (46-116); Anion Gap 8.1 mmol/L (3-11); BUN 26 mg/dL (7-18); Bilirubin, Total 0.4 mg/dL (0.2-1.0); CO2 25.9 mmol/L (21.0-32.0); Calcium 8.5 mg/dL (8.5-10.1); Chloride 106 mmol/L (98-107); Glucose 105 mg/dL (74-106); Potassium 3.7 mmol/L (3.5-5.1); Sodium 140 mmol/L (136-145)
[2019-10-25 09:27] LABS: Troponin I < 0.05 ng/mL (<0.06)
[2019-10-25 09:47] LABS: D-Dimer 511 ng/mlFEU (<500)
[2019-10-25 09:55] LABS: Bilirubin Negative (Negative); Blood Negative (Negative); Clarity Clear (Clear); Glucose Negative (Negative); Ketones Negative (Negative); Leukocyte Esterase Negative (Negative); Nitrite Negative (Negative); Specific Gravity >= 1.030 (1.005-1.025); Urobilinogen 0.2 EU/dL (Up TO 0.2)
[2019-10-25 10:17] LABS: RBC 0-2 HPF (0-2); WBC 0-2 HPF (0-5)
[2019-10-25 10:18] LABS: Bacteria Few HPF (Negative); C & S Indicated? Yes; Casts Negative LPF (Negative); Crystals Negative HPF (Negative); Epithelial Cells Negative HPF (Negative); Mucus Moderate (Negative); Other Cells Negative (Negative)
== END 2019-10-25 12:46 | disposition home or self-care (01) ==
PROVIDERS: Emergency Provider Physician Assistant; PCP Internal Medicine
DX: R55 Syncope and collapse (principal); R11.0 Nausea; J44.9 Chronic obstructive pulmonary disease, unspecified; Z87.891 Personal history of nicotine dependence
CPT/HCPCS: 36415; 80053; 93005; 96360; 99285; 70450; 71046; 72125; 81003; 81015; 83735; 84484; 85025; 85379; 87086; 93010

== ENCOUNTER 2020-05-23 20:11 | Outpatient (REF) | payer BC, SELFPAY ==
[2020-05-23 13:16] LABS: Calculated LDL 151 mg/dL (<100); Cholesterol 208 mg/dL (<200); HDL Cholesterol 43 mg/dL (40-60); Triglyceride 73 mg/dL (<150)
== END 2020-05-23 20:12 | disposition home or self-care (01) ==
LOC: NCHCN 20:11
PROVIDERS: PCP Internal Medicine; Visit Provider Internal Medicine
DX: I70.8 Atherosclerosis of other arteries (principal)
CPT/HCPCS: 80061

== ENCOUNTER 2020-05-29 01:59 | Outpatient (CLI) | payer BC, SELFPAY ==
--- NOTE | 2020-05-29 | DI.US_ITS ---
EXAM: US CAROTID CLINICAL HISTORY: CAROTID ATHEROSCLEROSIS, I70.8 TECHNIQUE: Ultrasound performed using standard protocol. COMPARISON: US US ECHOCARDIOGRAM from 06/16/2019 FINDINGS: Duplex evaluation of the carotid circulation was performed according to the usual protocol. There is mild visible atheromatous plaque in the proximal internal and external carotid arteries on the right . There is bilateral antegrade vertebral flow. Flow velocities in the common internal and external carotid arteries are within normal limits bilater ally. IMPRESSION: No evidence of a hemodynamically significant carotid stenosis. DATA REPOSITORY:
== END 2020-05-29 02:19 ==
PROVIDERS: PCP Internal Medicine; Visit Provider Internal Medicine
DX: I70.8 Atherosclerosis of other arteries (principal)
CPT/HCPCS: 93880

== ENCOUNTER 2021-02-01 10:55 | Outpatient (REF) | payer BC, SELFPAY ==
[2021-02-01 16:39] LABS: Anion Gap 11.2 mmol/L (3-11); BUN 18 mg/dL (7-18); CO2 24.8 mmol/L (21.0-32.0); CREATININE 0.9 mg/dL (0.70-1.30); Calcium 8.9 mg/dL (8.5-10.1); Chloride 105 mmol/L (98-107); Glucose 125 mg/dL (74-106); Potassium 4.4 mmol/L (3.5-5.1); Sodium 141 mmol/L (136-145)
[2021-02-04 10:46] LABS: HIV-1/2 Ag & Ab Screen Negative (Negative)
== END 2021-02-01 10:56 | disposition home or self-care (01) ==
LOC: NCHCN 10:55
PROVIDERS: PCP Internal Medicine; Visit Provider Family Medicine
DX: Z00.00 Encounter for general adult medical examination without abnormal findings (principal); R73.03 Prediabetes; N17.9 Acute kidney failure, unspecified; Z11.4 Encounter for screening for human immunodeficiency virus [HIV]
CPT/HCPCS: 80048; 87389

== ENCOUNTER 2021-10-09 18:48 | Outpatient (REF) | payer BC, SELFPAY ==
[2021-10-09 20:25] LABS: HCT 46.2 % (40.0-50.0); HGB 14.9 g/dL (13.5-17.5); MCH 29.9 pg (27.0-33.0); MCHC 32.3 % (32.0-36.0); MCV 93 fL (80-95); Platelet Count 339 10^3/uL (130-400); RBC 4.98 10^6/uL (4.36-5.78); RDW 13.2 % (11.8-14.1); WBC 5.16 10^3/uL (4.4-10.8)
[2021-10-09 21:05] LABS: ALT 48 U/L (16-63); AST 28 U/L (15-37); Albumin 4.1 g/dL (3.4-5.0); Alkaline Phosphatase 82 U/L (46-116); Anion Gap 6.6 mmol/L (3-11); BUN 32 mg/dL (7-18); Bilirubin, Total 0.4 mg/dL (0.2-1.0); CO2 28.4 mmol/L (21.0-32.0); CREATININE 0.9 mg/dL (0.70-1.30); Calcium 9.4 mg/dL (8.5-10.1); Chloride 105 mmol/L (98-107); Glucose 107 mg/dL (74-106); Potassium 4.7 mmol/L (3.5-5.1); Sodium 140 mmol/L (136-145); TSH (W/Ref FT4) 0.95 uIU/mL (0.36-3.74); Total Protein 7.8 g/dL (6.4-8.2)
== END 2021-10-09 18:49 | disposition home or self-care (01) ==
LOC: NCHCN 18:48
PROVIDERS: PCP Internal Medicine; Visit Provider Family Medicine
DX: R42 Dizziness and giddiness (principal)
CPT/HCPCS: 80053; 85027; 84443

== ENCOUNTER 2021-11-04 04:28 | Outpatient (RCR) | payer BC, SELFPAY ==
--- NOTE | 2021-11-04 11:15 | HOLTER_ITS ---
APPROVED REPORT Conclusion This is a 48-hour Holter monitor ordered for palpitations Predominant rhythm was sinus with an average rate of 61. Minimum was 46, maximum 93 There were very rare isolated premature ventricular contractions There were very rare atrial premature beats. There was one 20 beat self-limited atrial run, rate ap proximately 150 bpm There was no atrial fibrillation , no high-grade AV block, no pauses greater than 3 seconds No patient symptoms were reported
== END 2021-11-27 23:59 | disposition home or self-care (01) ==
LOC: RT 04:28
PROVIDERS: PCP Internal Medicine; Visit Provider Family Medicine
DX: R00.2 Palpitations (principal); I49.8 Other specified cardiac arrhythmias
CPT/HCPCS: 93225; 93226

== ENCOUNTER → 2022-02-07 10:43 | Outpatient (CLI) | payer BC, SELFPAY ==
--- NOTE | 2022-02-07 | DI.RAD_ITS ---
Exam(s) XR LUMBAR SPINE COMPLETE EXAM: XR LUMBAR SPINE COMPLETE CLINICAL HISTORY: BACK PAIN LUMBAR WITH RADICULOPATHY, M54.16. TECHNIQUE: 2D digital imaging was performed. COMPARISON: CR LUMBAR SPINE COMPLETE from 02/03/2011 FINDINGS: Five views: No evidence of compression fracture. No listhesis. There is moderate disc space narrowing and anter ior osseous lipping at L2-3 level, more so than in 2011. Also some disc space narrowing at the lower 3 levels. No listhesis. No pars defects. There is moderate facet joint degenerative change at the lower 2 levels, slightly increased from the previous study. There is no significant scoliosis. No osseous lesions. IMPRESSION: Progression of degenerative changes when compared to 2011, as described above. DATA REPOSITORY: RADIATION DOSE DELIVERED:
--- OUTSIDE RECORDS SUMMARY | 2022-02-07 10:49 | XMS_ITS | Continuity of Care Document ---
:1955 Author Organization [facility] Care Team Providers Name Role Phone [facility] Unavailable Unavailable Problems Combined list of problems from [facility] and [facility] facilities. It does not include entries that were removed or entered in error. Problem Status Onset Date Problem Type Date of Comments Source Resolution Major Depress Active Condition [place] Disorder-Unspe [facility] Social History Combined list of available smoking, tobacco, and other social history from [facility] facilities. Social History Type Response Date Comment Source Tobacco smoking status CURRENT SMOKER 06/06/2002 2-3 ppd [facility] TE JOSE LUIS [facility] NHIS
== END ==
PROVIDERS: PCP Internal Medicine; Visit Provider Family Medicine
DX: M54.16 Radiculopathy, lumbar region (principal); M47.816 Spondylosis without myelopathy or radiculopathy, lumbar region
CPT/HCPCS: 72110

== ENCOUNTER 2022-02-27 09:46 | Outpatient (CLI) | payer BC, SELFPAY ==
--- NOTE | 2022-02-27 08:30 | DI.RAD_ITS ---
Exam(s) XR STANDING ALIGNMENT EXAM: XR STANDING ALIGNMENT CLINICAL HISTORY: knee pain TECHNIQUE: COMPARISON: CR XR KNEE RT 2V AP,LAT from 02/27/2022 FINDINGS: AP standing alignment views were obtained of both lower extremities. There are moderate degenerative changes of both hips. There are moderate to severe degenerative changes of medial tibiofemoral join ts bilaterally. IMPRESSION: RADIATION DOSE DELIVERED: Total DLP
--- NOTE | 2022-02-27 08:30 | DI.RAD_ITS ---
Exam(s) XR KNEE RT 2V AP,LAT EXAM: XR KNEE RT 2V AP,LAT CLINICAL HISTORY: knee pain TECHNIQUE: COMPARISON: CR XR KNEE LT 2V AP,LAT from 02/27/2022 FINDINGS: Two views were obtained with a template ball period there is severe loss of the cartilaginous joint s pace of medial tibiofemoral joint with subchondral sclerosis of the adjacent bones and mild medial bailey bluxation of femur on tibia. There are mild marginal osteophytes of all 3 joints of the knee. IMPRESSION: Severe DJD medial tibiofemoral joint RADIATION DOSE DELIVERED: Total DLP
--- NOTE | 2022-02-27 08:33 | DI.RAD_ITS ---
Exam(s) XR KNEE LT 2V AP,LAT EXAM: XR KNEE LT 2V AP,LAT CLINICAL HISTORY: left knee OA TECHNIQUE: COMPARISON: No exams were available for comparison FINDINGS: Two views were obtained with a template ball. There is severe loss of cartilaginous joint space of m edial tibiofemoral joint with medial subluxation of the femur on the tibia. Mild marginal osteophyte s noted at this site. Mild marginal osteophytes also seen associated with patellofemoral joint. IMPRESSION: Severe DJD medial tibiofemoral joint RADIATION DOSE DELIVERED: Total DLP
== END 2022-02-27 09:47 | disposition home or self-care (01) ==
LOC: DIORS 09:46
PROVIDERS: PCP Internal Medicine; Referring Provider Internal Medicine; Visit Provider Student in an Organized Health Care Education/Training Program
DX: M17.0 Bilateral primary osteoarthritis of knee
CPT/HCPCS: 73560; 77073

== ENCOUNTER 2022-03-10 03:26 | Outpatient (CLI) | payer BC, SELFPAY ==
[2022-03-10 13:26] LABS: HGB 14.8 g/dL (13.5-17.5); MCH 29.6 pg (27.0-33.0); MCHC 32.9 % (32.0-36.0); MCV 90 fL (80-95); Platelet Count 333 10^3/uL (130-400); RDW 12.9 % (11.8-14.1); RDW-SD 42.5 fL; WBC 6.19 10^3/uL (4.4-10.8)
[2022-03-10 13:56] LABS: Anion Gap 8.8 mmol/L (3-11); BUN 25 mg/dL (7-18); CO2 28.2 mmol/L (21.0-32.0); CREATININE 0.9 mg/dL (0.70-1.30); Calcium 9.1 mg/dL (8.5-10.1); Chloride 102 mmol/L (98-107); Estimated GFR 94.78 (mL/min/1.73m2); Glucose 94 mg/dL (74-106); Potassium 4.1 mmol/L (3.5-5.1); Sodium 139 mmol/L (136-145)
== END 2022-03-10 03:27 | disposition home or self-care (01) ==
LOC: LBO 03:26
PROVIDERS: PCP Internal Medicine; Visit Provider Student in an Organized Health Care Education/Training Program
DX: M25.562 Pain in left knee (principal); M17.12 Unilateral primary osteoarthritis, left knee; Z01.818 Encounter for other preprocedural examination; Z01.812 Encounter for preprocedural laboratory examination
CPT/HCPCS: 36415; 80048; 85027

== ENCOUNTER 2022-03-19 10:49 | Day surgery (SDC) | payer BC, SELFPAY ==
[2022-03-19] VITALS (8 sets, daily range): BP systolic 108–137; BP diastolic 66–88; PULSE 52–64; RESP 14–16; TEMP 36.2–36.6; O2SAT 93–96; BMI 36.3
--- NOTE | 2022-03-19 09:31 | DSE_ITS ---
Date of service: 03/19/22 Time of Service: 14:43 DS: Diagnosis Discharge Diagnosis (1) Primary osteoarthritis of left knee: Status: Acute Discharge Plan Disposition Patient Disposition: Home Condition: Good Discharge Details Reason For Visit: Left knee DJD Attending Provider: Dakota Castellanos Primary Care Provider: Rodney Cooley Home Meds and New Rx's Prescriptions: New acetaminophen 500 mg tablet 500 mg PO Q6H PRN (Reason: pain) Qty: 60 2RF aspirin 81 mg tablet,delayed release (DR/EC) 81 mg PO BID 30 Days Qty: 60 0RF celecoxib [Celebrex] 200 mg capsule 200 mg PO BID Qty: 60 0RF docusate sodium [Colace] 100 mg capsule 100 mg PO BID Qty: 30 0RF pantoprazole 40 mg tablet,delayed release (DR/EC) 40 mg PO DAILY 14 Days Qty: 14 0RF dexamethasone 4 mg tablet 4 mg PO DAILY Qty: 2 0RF Rx Instructions: Take one tablet once daily for two days oxycodone 5 mg tablet 5 mg PO Q4H PRN (Reason: severe post-operative pain) Qty: 18 0RF Rx Instructions: Take one tablet up to every 4 hours as needed for severe pain Continued quetiapine [Seroquel] 100 MG tablet 100 mg PO HS Rx Instructions: Take 1 tablet by mouth daily and may take repeat if necessary verapamil 180 MG capsule,ext rel. pellets 24 hr 180 mg PO HS gabapentin 300 mg capsule 300 mg PO TID PRN albuterol sulfate [ProAir HFA] 90 mcg/actuation HFA aerosol inhaler 2 puff IH Q4H PRN omeprazole 40 mg capsule,delayed release(DR/EC) 20 mg PO HS Anoro Ellipta 62.5-25 mcg/actuation blister with device 1 inh INHALATION HS Label Comments: INHALE ONE PUFF BY MOUTH EVERY DAY ondansetron 4 mg tablet,disintegrating 4 mg PO TID PRN (Reason: nausea and vomiting) Qty: 6 0RF Discontinued meloxicam 15 MG tablet 15 mg PO HS No Action meloxicam 7.5 mg Tablet Discharge Instructions Additional Instructions: Total Knee Discharge Instructions Activity: The most important activity is to walk and to work on gentle motion (both flexion and extension). You should try to take short walks a few times a day. It is important that when resting you work on keeping the knee straight. Avoid putting a pillow behind the knee as this will encourage flexion. Work on range of motion exercises as provided by Physical Therapy. - Start outpatient physical therapy within 2 weeks. - You should wear the SYED hose on both legs for 2 weeks. You may remove these at night. You may also use any compression sock in place of the SYED hose. - Utilize [employer] to review exercises, see videos on exercises and obtain basic information pertaining to your surgery and your recovery. Dressing: Remove the Lance wrap by 2 days after your surgery and put on the SYED stocking given to you from the hospital. Keep the surgical dressing (underneath the LANCE wrap) in place for at least one week. After the first week it may be removed and replaced with light gauze and tape or nothing. The wound and dressing may get wet after 3 days but avoid soaking the dressing or otherwise it will need to be changed. Many people prefer covering the dressing with cling wrap (saran wrap) to minimize it from getting soaked. If it gets wet, just pat dry. If it starts to peel off then it will need to be changed. Medications: - You should take Tylenol and anti-inflammatory Celebrex as your primary pain control medications. If the Celebrex is too expensive or not covered, please call the office for another alternative (Advil/Ibuprofen or Naproxen/Aleve). - You have been prescribed a stronger pain medication Oxycodone for breakthrough pain, take as needed as prescribed. - You have also been prescribed a stomach acid reduction agent Pantoprozole to help reduce stomach acid and reflux. - You have been prescribed Gabapentin to take at night for restlessness and nerve pain. - You will be taking Aspirin 81mg twice a day for DVT prevention unless instructed otherwise. - You have also been prescribed Decadron to take to control post-operative nausea and pain. You will start this tomorrow. - If you have constipation you should take Colace (which has been prescribed) or Miralax (which [id number]). It takes most people 3-4 days to have a bowel movement. Follow-up: 2 weeks If you have any acute concerns or questions, please do not hesitate to contact the office at [phone]. You may contact Dr. Castellanos with any questions after hours through the hospital at [phone] or on his cell phone at [phone]. Referrals: Dakota Castellanos MD [ [facility] STAFF PHYSICIAN] - Equipment/Supplies: Walker Activity:: Elevate Remove Dressings/Wound Care:: Do Not Remove Shower/Bathe:: Cover Diet:: As Tolerated DS: Summary Time Spent with Patient providing and/or coordinating discharge services: Less than 30 minutes Status at Discharge Functional status at discharge: uses cane/walker Overall status at discharge: patient is progressing back to baseline Mental Status: mental status grossly normal Speech and Movement: speech and movement normal Mood: congruent mood Affect: normal affect Exam Psych Mental Status: mental status grossly normal Speech and Movement: speech and movement normal Mood: congruent mood Affect: normal affect PFSH All Active Problems Primary osteoarthritis of left knee (Acute) Primary osteoarthritis of right knee (Acute) Medical History Acute nontraumatic kidney injury Pt. denies this Amputated great toe Atypical chest pain f/u with Dr. Cooley Pt. states he has heaviness on chest, but not cardiac related, states he had it worked up by by refinery operator coking, was diagnosed with emphysema Kaye's esophagus Ceruminosis Cluster headaches COPD (chronic obstructive pulmonary disease) DIVERTICULOSIS SIGMOID Dyspnea on exertion Emphysema lung GERD Hammer toe Hiatal hernia History of tobacco abuse Hyperlipidemia Impacted cerumen, left ear Obesity (BMI 30.0-34.9) Osteoarthritis of knees, bilateral Pain in right lower leg Phantom limb pain PTSD (post-traumatic stress disorder) Surgical History Amputation of great toe, left, traumatic With surgical revision Colonoscopy - IV Sedation (~2007) EGD - IV Sedation (~2010) History of colonoscopy (~04/2019) 2020 - tubular adenoma x3. MENISCUS REPAIR R Social History Smoking/Tobacco Use Status: Former Tobacco Use Quit Date: 01/28/19 Smoking risk assessment performed?: Yes Alcohol Intake: current Alcohol Intake frequency: a few times a month Alcohol type: beer Drug use: Daily Substance use type: marijuana Details: 03/19/22 - smoked marijuana Do you feel safe at home: Yes Do you feel safe in your relationship?: Yes
--- NOTE | 2022-03-19 10:00 | ANES.PREOP_ITS ---
General Info Date of Service Date Performed: 03/19/22 Height: 5 ft 6 in Weight: 102.2 kg Body Mass Index (BMI): 36.3 Surgical Procedure: Operation Date: 03/19/22 13:10 Proposed Procedure Side Surgeon p Knee Total Arthroplasty Cementless CR Left Dakota Castellanos MD Meds Allergies and Home Medications Allergies Allergy/AdvReac Type Severity Reaction Status Date / Time No Known Allergies Allergy Unverified 03/19/22 11:34 Home Medication Medication Instructions Recorded quetiapine 100 mg tablet (Seroquel) 100 mg PO HS 08/09/12 verapamil 180 mg 24 hr 180 mg PO HS 09/15/17 capsule,extended release albuterol sulfate 90 mcg/actuation 2 puff inhalation Q4H PRN 03/25/19 aerosol inhaler (ProAir HFA) gabapentin 300 mg capsule 300 mg PO TID PRN 03/25/19 ondansetron 4 mg disintegrating 4 mg PO TID PRN nausea and 10/25/19 tablet vomiting #6 tabs umeclidinium 62.5 mcg-vilanterol 1 inh inhalation HS 10/25/19 25 mcg/actuation powdr for inhalation (Anoro Ellipta) omeprazole 40 mg capsule,delayed 20 mg PO HS 01/13/22 release acetaminophen 500 mg tablet 500 mg PO Q6H PRN pain #60 tabs 03/19/22 aspirin 81 mg tablet,delayed 81 mg PO BID 30 days #60 tabs 03/19/22 release celecoxib 200 mg capsule (Celebrex) 200 mg PO BID #60 caps 03/19/22 dexamethasone 4 mg tablet 4 mg PO DAILY #2 tabs 03/19/22 docusate sodium 100 mg capsule 100 mg PO BID #30 caps 03/19/22 (Colace) meloxicam 7.5 mg tablet mg 03/19/22 oxycodone 5 mg tablet 5 mg PO Q4H PRN severe 03/19/22 post-operative pain #18 tabs pantoprazole 40 mg tablet,delayed 40 mg PO DAILY 14 days #14 tabs 03/19/22 release Current Visit Medications: Current Medications Generic Name Dose Route Start Last Admin Trade Name Freq PRN Reason Stop Dose Admin Acetaminophen 1,000 mg 03/19/22 06:00 Acetaminophen 500 Mg Tab PO 03/19/22 16:00 PREOP JACQUELINE Acetaminophen 1,000 mg 03/19/22 14:00 Acetaminophen 500 Mg Tab PO TID [facility] Aspirin 81 mg 03/19/22 20:00 Aspirin E.C. 81 Mg Tabec PO BID [facility] Celecoxib 400 mg 03/19/22 06:00 Celecoxib 200 Mg Cap PO 03/19/22 16:00 PREOP [facility] Celecoxib 200 mg 03/19/22 20:00 Celecoxib 200 Mg Cap PO BID [facility] Dexamethasone 4 mg 03/20/22 08:30 Dexamethasone 4 Mg Tab PO 03/21/22 08:31 DAILY [facility] Docusate Sodium 100 mg 03/19/22 09:30 Docusate Sodium 100 Mg Cap PO BID PRN PRN Constipation Gabapentin 300 mg 03/19/22 06:00 Gabapentin 300 Mg Cap PO 03/19/22 16:00 PREOP [facility] Gabapentin 300 mg 03/19/22 22:00 Gabapentin 300 Mg Cap PO HS [facility] Hydromorphone HCl 0.5 mg 03/19/22 09:30 Hydromorphone 2 Mg/Ml Syr IVP Q2H PRN PRN Tranexamic Acid 1,000 mg/ 60 mls @ 360 mls/hr 03/19/22 06:00 Sodium Chloride IVPB 03/19/22 16:00 PREOP [facility] Ringer's Solution 1,000 mls @ 80 mls/hr 03/19/22 06:00 IV 04/17/22 23:59 INFUSION [facility] Cefazolin Sodium/Dextrose 2 gm in 50 mls @ 100 mls/hr 03/19/22 06:00 Ancef Duplex IVPB 03/19/22 16:00 PREOP [facility] Cefazolin Sodium/Dextrose 1 gm in 50 mls @ 100 mls/hr 03/19/22 10:00 Ancef Duplex IVPB 03/20/22 02:29 Q8H [facility] IV Miscellaneous Supplies 1 each 03/19/22 06:00 Iv Access IV 04/17/22 23:59 DIRECTED [facility] Ondansetron HCl 4 mg 03/19/22 09:30 Ondansetron 4 Mg/2 Ml Vial IVP Q6H PRN PRN Nausea Oxycodone HCl 0 mg 03/19/22 09:30 Oxycodone 5 Mg Tab PO Q3H PRN PRN Pain Pantoprazole Sodium 40 mg 03/20/22 07:30 Pantoprazole 40 Mg Tabcr PO DAILY@0730 [facility] Polyethylene Glycol 17 gm 03/19/22 09:30 Polyethylene Glycol 3350 17 Gm Packet PO BID PRN PRN Constipation Sodium Chloride 0 ml 03/19/22 06:00 Normal Saline Flush 10 Ml Syr IV 04/17/22 23:59 PRN PRN Sodium Chloride 0 ml 03/19/22 06:00 Normal Saline 10 Ml Vial IJ 04/17/22 23:59 DIRECTED PRN Sterile Water 0 ml 03/19/22 06:00 Water,Injection,Sterile 10 Ml Vial IJ 04/17/22 23:59 DIRECTED PRN PFSH Active Problems Active Problems: Problem Status Onset Code Primary osteoarthritis of left knee M17.12 Primary osteoarthritis of right knee M17.11 Medical History Medical History Acute nontraumatic kidney injury Pt. denies this Amputated great toe Atypical chest pain f/u with Dr. Cooley Pt. states he has heaviness on chest, but not cardiac related, states he had it worked up by by location director, was diagnosed with emphysema Kaye's esophagus Ceruminosis Cluster headaches COPD (chronic obstructive pulmonary disease) DIVERTICULOSIS SIGMOID Dyspnea on exertion Emphysema lung GERD Hammer toe Hiatal hernia History of tobacco abuse Hyperlipidemia Impacted cerumen, left ear Obesity (BMI 30.0-34.9) Osteoarthritis of knees, bilateral Pain in right lower leg Phantom limb pain PTSD (post-traumatic stress disorder) Surgical History Surgical History Amputation of great toe, left, traumatic With surgical revision Colonoscopy - IV Sedation (~2007) EGD - IV Sedation (~2010) History of colonoscopy (~04/2019) 2020 - tubular adenoma x3. MENISCUS REPAIR R Tobacco Smoking/Tobacco Use Status: Former Tobacco Use Alcohol Alcohol Intake: current Alcohol intake frequency: a few times a month Substance Use Substance use: Daily Substance use type: marijuana Vital Signs and Lab Results Lab Results Blood Type / Crossmatch: No Data to Display Complete Blood Count: White Blood Count 6.19 10^3/uL (4.4-10.8) 03/10/22 13:12 Red Blood Count 5.00 10^6/uL (4.36-5.78) 03/10/22 13:12 Hemoglobin 14.8 g/dL (13.5-17.5) 03/10/22 13:12 Hematocrit 45.0 % (40.0-50.0) 03/10/22 13:12 Platelet Count 333 10^3/uL (130-400) 03/10/22 13:12 Complete Metabolic Panel: Sodium 139 mmol/L (136-145) 03/10/22 13:12 Potassium 4.1 mmol/L (3.5-5.1) 03/10/22 13:12 Chloride 102 mmol/L (98-107) 03/10/22 13:12 Carbon Dioxide 28.2 mmol/L (21.0-32.0) 03/10/22 13:12 BUN 25 mg/dL (7-18) H 03/10/22 13:12 Creatinine 0.9 mg/dL (0.70-1.30) 03/10/22 13:12 Est GFR (CKD-EPI 2020) 94.78 (mL/min/1.73m2) 03/10/22 13:12 Calcium 9.1 mg/dL (8.5-10.1) 03/10/22 13:12 Glucose 94 mg/dL (74-106) 03/10/22 13:12 Liver Function Panel: No Data to Display Coagulation Panel: No Data to Display Cardiac Panel: No Data to Display Arterial Blood Gas: No Data to Display Venous Blood Gas: No Data to Display Pancreas Panel: No Data to Display Thyroid Panel: No Data to Display Infectious Disease: No Data to Display Blood Cultures: No Data to Display Toxicology Panel: No Data to Display Imaging and Studies Imaging and Studies Study information below may be from another EMR and interpreted by another provider. Please see original notes in EMR for more complete details. EKG Summary: PATIENT NAME: MARTHA ALBRECHT #: [id number] ORDERING PROVIDER: Gayathri Rodriguez #: [id number] PRIMARY CARE PROVIDER:RODNEY COOLEY MD DATE OF SERVICE: 10/25/19 : 1955PERFORMING LOCATION: ER APPROVED REPORT Exam: Resting ECG Patient Location: E HR:55 bpm ECG Measurements Heart Rate 55 AXIS NC 155 P 18 QRSd 161 QRS 65 QT 452 T19 QTc 433 <Conclusion> Sinus bradycardia...rate< 60 Right bundle branch block...QRSd>120, terminal axis(90,270). No acute ST elevation or depression. No old EKG to compare. Stress Test Summary: STRESS TEST PATIENT NAME: MARTHA ALBRECHT #: [id number] ADMITTING PROVIDER: JACQUE JACKSON MD #: [id number] PRIMARY CARE PROVIDER:NABILA JOSEPH M.D.DATE OF SERVICE: 09/06/15 : 1955 *[facility]* *[facility]* [address] [place] [address] Stress Electrocardiography Ilir protocol Date of study: 09/06/2015 *PATIENT PRESENTATION* Height: 180.3cm ((71in) ) Blood Pressure: Weight: 96.8kg ((213lb) ) BSA: 2.23m^2 Ordering physician: Landen Gutierrez Impressions: Normal study after maximal exercise. Indication: R07.9. R06.02. History: REASON FOR TESTING: RECENT ONSET OF CHEST HEAVINESS AND SHORTNESS OF BREATH WITH LEG PAIN INTERMITTANLY. HX:BARRETS ESOPHAGUS, ARTHRITIS OF BOTH KNEES. FAMILY HX:CVA AND ME IN FATHER, SMOKIN/3 PPD X 40 YEARS. QUIT 3 WEEKS AGO EXCERCISE: NO REGULAR EXCERCISE, BUT ACTIVE LIFESTYLE. Risk factors: Current tobacco use. Cholesterol: 200mg/dl. HDL: 42mg/dl. LDL: 151mg/dl. Triglycerides: 51mg/dl. ALLERGIES: NKDA MEDICATIONS: IBUPROFEN 600 MG PRN, SEROQUEL 100 MG DAILY, PRILOSEC 20 MG DAILY. Protocol: Ilir protocol. Baseline ECG: SINUS RHYTHM, HR 60 BPM Normal ECG. Stress protocol: + +---+ + !Stage !HR !BP (mmHg) ! + +---+ + !Baseline supine !60 !112/66 (81) ! + +---+ + !Baseline standing !69 !116/78 (91) ! + +---+ + !Stage I; 1.7mph, 10degrees; 3 min !96 !150/70 (97) ! + +---+ + !Stage II; 2.5mph, 12degrees; 3 min!107! ! + +---+ + !Immediate post stress !143!194/70 (111)! + +---+ + !Recovery; 3 min !86 !150/80 (103)! + +---+ + !Recovery; 6 min !79 !112/68 (83) ! + +---+ + * Stress results: The rate-pressure product for the peak heart rate and blood pressure was 08105va Hg/min. Stress ECG: TESTING ENDED BECAUSE OF FATIGUE AT 9 MINUTES AND 44 SECONDS MAX HR: 146 BPM, 90% OF TARGET NORMAL BLOOD PRESSURE RESPONSE NO ECTOPY NO SIGNIFICANT ST CHANGES Echocardiogram Summary: Patient Name: MARTHA ALBRECHT #: [id number]: DI Ordering Provider: Rodney Cooley M.D. : [facility] Primary Care Provider: Rodney Cooley M.D.Date of Exam: 06/16/19ex: M Admission Date: 06/16/19 : 1955 Age: 64 Exam(s) a US:US echocardiogram APPROVED REPORT EXAM: Comprehensive 2D, Doppler, and color-flow Echocardiogram Patient Location: Out-Patient Splicing Machine Operator: Jacqueline Dickson RDCS (AE) Indications: Exertional Dyspnea Other Information Study Quality: Adequate. Technically limited study due to body habitus. Conclusion Left Ventricle : The left ventricle is normal size. The left ventricular systolic function is normal. The left ventricular ejection fraction is within the normal range. There is normal left ventricular wall thickness. There is normal LV segmental wall motion. The left ventricular diastolic function is normal. LVEF is 55-60%. Right Ventricle : The right ventricle is normal size. The right ventricular systolic function is normal. Atria : The left atrium size is normal. The right atrium size is normal. Valves: There are no hemodynamically significant valvular lesions. Great Vessels : IVC is normal in size and collapses >50% with inspiration. There is none of tricuspid regurgitation to estimate RVSP. There is no prior echocardiogram available for comparison. Carotid Artery Summary:: Patient Name: MARTHA ALBRECHT #: [id number]: ARTUR Ordering Provider: Rodney Cooley M.D. : [facility] Primary Care Provider: Rodney Cooley M.D.Date of Exam: 05/29/20Sex: M Admission Date: 05/29/20 : 1955 Age: 65 Exam(s) a US:US carotid EXAM: US CAROTID CLINICAL HISTORY: CAROTID ATHEROSCLEROSIS, I70.8 TECHNIQUE: Ultrasound performed using standard protocol. COMPARISON: US US ECHOCARDIOGRAM from 06/16/2019 FINDINGS: Duplex evaluation of the carotid circulation was performed according to the usual protocol. There is mild visible atheromatous plaque in the proximal internal and external carotid arteries on the right. There is bilateral antegrade vertebral flow. Flow velocities in the common internal and external carotid arteries are within normal limits bilaterally. IMPRESSION: No evidence of a hemodynamically significant carotid stenosis. Pulmonary Function Summary: Pulmonary Function Test PATIENT NAME: MARTHA ALBRECHT AUNIT #: [id number] ADMITTING PROVIDER: MICHEAL CASTELLANOS, NIKKICOHUI #: [id number] PRIMARY CARE PROVIDER:RODNEY COOLEY MD DATE OF ADMIT: 05/25/19 : 1955 PULMONARY FUNCTION TEST REPORT Patient - Martha Albrecht DATE OF SERVICE May 25, 2019 REQUESTING PROVIDER Rodney Cooley M.D. INTERPRETATION OF STUDY Spirometry shows moderately severe obstructive airways disease with significant bronchodilator response. LUNG VOLUMES - Lung volumes show no evidence of restriction. There is moderate hyperinflation and air trapping. DIFFUSION CAPACITY- Normal. AIRWAY RESISTANCE - Normal. IMPRESSION Moderately severe obstructive airways disease with significant bronchodilator response. This is associated with moderate hyperinflation and air trapping. When this study was compared to previous one from 03/21/16, the patient has a total of 760 cc decline in FVC. FEV1 has declined by 1010 cc. This is a significant interval decline. Clinical correlation recommended. Anesthesia Assessment and Plan Anesthesia History Personal History: No History of Anesthesia Complications Family History: No Family History of Anesthesia Complications Exercise Tolerance Exercise Tolerance: Metabolic Equivalents>4 Pertinent Negatives Pertinent Negatives: No Symptoms of GERD, No Major Cardiovascular Symptoms or Complaints, No Major Pulmonary Symptoms or Complaints and No History of CVA/TIA Cardiac & Pulmonary Exam Cardiac Exam: Normal S1/S2 Heart Sounds Pulmonary Exam: Clear Bilateral Breath Sounds Implantable Cardiac Device Does patient have a Pacemaker or an ICD?: No Airway Exam Known Difficult Airway: No Mallampati Class: 2 Mouth Opening: Normal (> 3cm) Thyromental Distance: Greater than 3 cm Neck Range of Motion: Full ROM Neck Circumference: Normal Teeth Condition: Normal Dentition ASA Classification ASA Score: ASA 3 Emergency Case?: No NPO Status NPO Status: NPO Clears >2 hours, Solids >8 hours Anesthesia Plan Resuscitation Status: Full Code Anesthesia Technique: Spinal Anesthesia Airway Planned: Natural Airway Pain Management: Surgeon and patient request nerve block Monitors Used: Standard Monitors
[2022-03-19] MEDS: Acetaminophen 500 MG TAB 1000 MG PO (11:19)
[2022-03-19] MEDS: Celecoxib 200 MG CAP 400 MG PO (11:19)
[2022-03-19] MEDS: Gabapentin 300 MG CAP PO (11:19)
[2022-03-19] MEDS: Lactated Ringers 1,000 ML 80 ML IV (12:01)
[2022-03-19] MEDS: ceFAZolin 2 GM/50 ML BAG IVPB (12:48)
--- NOTE | 2022-03-19 13:09 | W.ANESNERVE ---
Nerve Block Single Injection Procedure Date and Time Date Performed: 03/19/22 Procedure Start: 12:11 Location Where Procedure Performed Procedure Location: Day Surgery Unit Reason Performed: Postoperative Analgesia Requesting Provider: Dakota Castellanos Timeout Performed Timeout Performed: Yes Monitoring Used ECG, Blood Pressure and SpO2 Sterility Sterility: Hand Hygiene, Surgical Cap, Surgical Mask, Sterile Gloves and Chlorhexidine Sedation Given During Procedure Sedation Given (Indicate Dose Given): No Sedation given Patient Mental Status Patient Mental Status: Awake Nerve Block 1st Nerve Block: Laterality: Left Block Type: Adductor Canal Needle / Catheter Used: 100mm SonoPlex II Local Anesthetic Bolus (Indicate Dose Given): Lidocaine used for local infiltration of skin, Injected in 3-5ml increments after negative blood aspiration and Bupivacaine 0.25% Dose:: 15 ml Additives (Indicate Dose Given): None Ultrasound: Sterile probe cover and gel used Ultrasound Image Saved?: Yes Nerve Stimulator: Not Used Paresthesia: None Procedure Tolerated: No Complications and Patient tolerated well Procedure Outcome: Successful Performed By: Jm Hdez
--- NOTE | 2022-03-19 14:58 | W.PM.OP ---
Date of service: 03/19/22 Time of Service: 14:20 Operative Note Operative Note DATE OF PROCEDURE: 03/19/22 PRE-OP DIAGNOSIS: Left Knee Osteoarthritis POST-OP DIAGNOSIS: same PROCEDURE: Left Total Knee Replacement SURGEON: Dakota Castellanos CONCRETE MIXER OPERATOR HELPER: Cherise So ANESTHESIA TYPE: Spinal Refer to Anesthesia Record ESTIMATED BLOOD LOSS: 50 PATHOLOGY: none sent TOURNIQUET TIME: 0 COMPLICATIONS: None Patient was transported to: PACU Patient's condition: stable Implants: 1. Depuy Attune Cementless Cruciate Retaining Femoral Component, Size 7 2. Depuy Attune Cementless Rotating Platform Tibial Component, Size 6 3. Depuy Attune 7x7mm CR/PS Poly 4. Depuy Attune Patellar Component, Size 41 Indications: I have seen Jm in clinic for symptoms of knee arthritis, confirmed with radiographic findings. Jm has exhausted nonoperative methods and was having significant limitations in daily function and desired better function and less pain. I discussed the technical details of a knee replacement. I explained the risks of the procedure to include, but not limited to, bleeding, infection, pain, stiffness, fracture, damage to nerves and vessels, damage to muscles and tendons, loosening, need for repeat procedure, blood clot and cardiopulmonary demise. Despite these risks, he elected to proceed. Findings: There was significant signs of arthritis throughout the knee, especially of the medial femur where there was exposed bone. Procedure Description: Jm was greeted in the preoperative holding area where the correct side was identified and marked. The consent was reviewed with the patient and signed. The history and physical was updated. All questions were answered. Preoperative medications were administered: Acetaminophen 1000mg, Celebrex 400mg, and Gabapentin 300mg. An adductor canal block was then administered by the anesthesia team in the PACU. Jm was taken back to the operating room. A spinal anesthestic was then administered. The patient was placed into the supine position on the operating room table. A nonsterile tourniquet was placed high onto the leg but only used for cementing. Posts were placed for positioning during the procedure. All bony prominences were well padded. Prophylactic antibiotics in the form of Cefazolin were administered. 1g of Tranxemic Acid was given intravenously within 30 minutes of incision. The left leg was then prepped with Chloraprep and draped in a standard fashion with impervious stockinette. A second prep with Chloraprep was performed prior to application of Iodine impregnated skin protection. A timeout to confirm correct identity, side and site, procedure, allergies, anesthesia, and medical concerns was performed. With the knee in some flexion, a midline incision was made overlying the knee. Full thickness skin flaps were raised once the extensor mechanism was encountered. These were raised medially and laterally. Any bleeding was controlled with electrocautery. Once the extensor mechanism was fully exposed, a medial parapatellar arthrotomy was performed in a flexed position. All bleeding from the arthrotomy and the geniculate arteries was coagulated. A medial subperiosteal peel was performed with electrocautery to the midcoronal plane. Due to the significant varus deformity the entire medial tibial plateau was exposed. The fat pad was removed while keeping the patellar tendon protected. The anterior distal femur synovium was removed for later visualization. The ACL and PCL were resected and the anterior horn of the lateral meniscus was transected. The knee was then flexed with the patella everted. Large osteophytes from the tibia were removed. Large osteophytes from the femur were removed. There was a large swatch of exposed bone over the medial distal femur. Using a step drill, and based on preoperative templating, the femoral canal was entered. This was done with a step drill without any difficulty. The intramedullary distal femoral cut guide was inserted, set to a 7 degree valgus cut and 9mm cut thickness. The distal femoral cut guide was then held in position and pinned. With the soft tissues protected, the distal cut was performed. This was passed over a few times to ensure a planar cut. I then turned attention to the tibia. The extramedullary guide was placed onto the leg. The distal aspect was slid medial to adjust for position of center of ankle and stay in line with shaft of the tibia. Approximately 3-5 degrees of posterior slope was kept in the proximal cutting guide. The center of the guide was aligned with the PCL. The stylus was used to assess cut thickness. The medial side, most involved side, was set for a 4mm cut. This was then held in position and pinned into place with 2 additional pins and a cross pin for stability. The medial and lateral collateral ligaments were protected and the cut was performed. With this completed, it was assessed and noted to be of appropriate dimensions. The guide was removed. A spacer block was inserted and the knee was brought into extension. The 7mm spacer block provided full extension, without hyperextension and with stability of both the medial and lateral collateral ligaments was assessed. The pins from the femur and the tibia were then removed. The distal femur was then sized. The anterior stylus was placed onto the lateral ridge of the anterior femur. This indicated a size 7 femur. The external rotation of the guide was adjusted to 0 degrees to match the epicondylar axis, perpendicular to Hang?s line. The 4-in-1 cutting guide was the placed. The posterior medial femur cut was evaluated and appeared of good thickness. The spacer block was inserted underneath the cutting guide and stability was confirmed in 90 degrees of flexion. An aubrey wing was used to confirm appropriate position of the anterior cut to avoid notching. This cutting guide was ensured to be flush on the cut surface and then pinned into place with headed pins. While protecting the soft tissues, quad tendon, and collateral ligaments, the anterior and posterior cuts were performed with a saw. The central two pins were removed and the posterior and anterior chamfers were cut next. The notch-cutting guide was placed. This was pinned to lateralize the femoral component as much as possible while keeping it flush on the cut surface. This was then pinned into position. A reciprocating saw was used to make the notch cut. A rasp smoothed the cut surfaces. The medial and lateral menisci were removed. A trial femoral component was then inserted, impacted down to the cut surfaces, and the lug holes were drilled. A provisional trial tibial component was placed and the knee was brought through range of motion. There was noted to be excellent extension and flexion. There was no significant instability. The patella was tracking without thumbs. A size 7mm polyethylene component provided the best range of motion and stability with less than 2mm gapping with medial and lateral stress and full extension without significant hyperextension. The tibial cut surface was fully exposed. The tibia was then sized as a 6. The tibia had been previously marked during trialing to correspond to the center of the tibial component to help with rotation. The trial was aligned to this fam, approximately rotated to the medial 1/3rd of the tibial tubercle. The trial was pinned into place. The tibia was prepared with a reamer and a keel punch and lug holes. The knee was then brought into extension and the patella was measured as 27mm. Using the patellar clamp and cut guide, this was resected to a flat surface with at least 13mm of thickness remaining. The size 41 patella fit the best. This was oriented and then clamped into position. The lugs were drilled. The trial components were removed. The final components were opened on the back table. The periosteal and capsular tissues, especially posteriorly, around the knee were then systematically injected with a periarticular cocktail consisting of 246mg of Ropivacaine, 0.5mg of Epinephrine, 0.08mg of Clonidine, and 30mg of Ketorolac, diluted to 100cc. On the back table, with the implants opened, the cement was mixed. One batch of high viscosity cement was prepared with vacuum assistance. After the cement was ready a small amount was placed on the cut surface of the patella and the patellar button was clamped into position and held. While the cement was hardening, the cementless knee components were placed. Starting with the tibial component, the tibia was subluxed anteriorly and the lug holes of the component were lined up. The tibia was then impacted with an impactor and mallet until the tibial component was in contact with the tibia. Then, the femoral component was inserted. The lug holes were aligned and the component was impacted into position. The final polyethylene was then inserted. The knee was irrigated with Surgiphor Betadine solution. This was allowed to sit in the knee for 3 minutes and then it was irrigated out with saline. After the cement had finally cured, approximately 15min, the clamp was removed from the patella and the knee was taken through range of motion. The patella was tracking with a no-thumbs technique. The capsule was then reapproximated with a No. 1 Vicryl at multiple locations. The capsule was finally closed with a No. 2 Stratafix, barbed suture. The second dosing of 1g TXA was started. Deep tissues were then reapproximated with 0 Vicryl and 2-0 Vicryl. The skin was closed with a running 3-0 Monocryl in a subcuticular fashion. This was reinforced with skin glue. A Mepilex silver dressing was applied along with a [id number] MARIA GUADALUPE wrap. A CryoCuff was applied. Jm was transferred to the hospital bed without difficulty and suffering no apparent complication. Jm has a good prognosis. Physical therapy will start today and without restrictions, weight-bearing as tolerated. Aspirin 81mg BID will be used for DVT prophylaxis.
--- NOTE | 2022-03-19 15:38 | W.ANESPOSTOP ---
Postoperative Evaluation Date, Time and Location Date Performed: 03/19/22 Time Performed: 15:38 Patient Location: Day Surgery Unit Vital Signs Most Recent Imported Vital Signs: Most Recent Vital Signs Temp Pulse Resp BP Pulse Ox 36.3 C L 55 L 16 108/79 95 03/19/22 15:13 03/19/22 15:13 03/19/22 15:13 03/19/22 15:13 03/19/22 15:13 Pain Score Most Recent Pain Score: Most Recent Pain Score Pain Level 0 03/19/22 15:13 Assessment Mental Status: Awake (Alert & Oriented to Patient Baseline) Airway and Respiratory Function: Patent airway with normal (patient baseline) respiratory exam Cardiovascular Function: Hemodynamically Stable Hydration Status: Adequately Hydrated Nausea & Vomiting: No Nausea or Vomiting Pain: Pain is tolerable per patient (Per patient some upper left extremity pain, indicated shoulder and upper chest. Non-radiating, indicated worsening with movement. Denied numbness or tingling to the extremity. Discussed positioning as most likely culprit. ) Peripheral Nerve Block: Regional nerve block not resolved at time of post operative discharge (Left adductor canal. )
--- NOTE | 2022-03-19 16:16 | PT.INIE ---
Date of service: 03/19/22 Time of Service: 16:16 PT Notes Visit Reasons: Left knee DJD Physical Therapy Day Surgery Initial Evaluation Date: 03/19/2022 Referring Doctor: LETHA Allred PT Orders: PT CONSULT: 'S/P Ortho Surgery Precautions: WBAT on the L LE with AD. Patient Profile/Admitting Diagnosis: Patient is a 67-year-old male patient with degenerative joint disease of the L knee S/P L total knee arthroplasty on postoperative day 0. PMHX: Medical History?(Updated 02/27/22 @ 09:[address]) Acute nontraumatic kidney injury Pt. denies thisAmputated great toe Atypical chest pain f/u with Dr. Cooley Pt. states he has heaviness on chest, but not cardiac related, states he had it worked up by by still cleaner tube, was diagnosed with emphysema Kaye's esophagus Ceruminosis Cluster headaches COPD (chronic obstructive pulmonary disease) DIVERTICULOSIS SIGMOID Dyspnea on exertion Emphysema lung GERD Hammer toe Hiatal hernia History of tobacco abuse Hyperlipidemia Impacted cerumen, left ear Obesity (BMI 30.0-34.9) Osteoarthritis of knees, bilateral Pain in right lower leg Phantom limb pain PTSD (post-traumatic stress disorder) Surgical History?(Updated 03/10/22 @ 15:[address]) Amputation of great toe, left, traumatic With surgical revision Colonoscopy - IV Sedation (~2007) EGD - IV Sedation (~2010) History of colonoscopy (~04/2019) 2020 - tubular adenoma? x3.MENISCUS REPAIR R Social History/Home Situation: Patient lives with in a private home with two steps to enter with a rail on one side. Indepednent with all aspects of ADLs prior to surgery. Equipment Owned/DME: Bilateral axillary crutches Subjective: Agreeable to consult. Reports pain in L knee with range of motion exercises. Denies headache, chest pain, and lightheadedness throughout session. Objective: General Observation: Pat present inside room during evalaution. MARIA GUADALUPE wraps to L LE. Cryocuff to L knee. TEDS to R leg. Mental Status: Alert and oriented x 4 Pain: 3/10 pain int he L knee ROM: Right Lower Extremity: Hip flexion WFL. Hip abduction WFL. Knee flexion WFL. Ankle dorsiflexion WFL. Ankle plantarflexion WFL. Left Lower Extremity: Hip flexion WFL. Hip abduction WFL. Knee flexion 10 degres to 110 degrees. Extension ankle dorsiflexion WFL. Ankle plantarflexion WFL. Strength: Right Lower Extremity: Hip flexors 5/5. Hip abductors 5/5. Knee flexors 5/5. Knee extensors 5/5. Ankle dorsiflexors 5/5. Ankle plantarflexors 5/5. Left Lower Extremity:Hip flexors 4/5. Hip abductors 4/5. Knee flexors 3-/5. Knee extensors 3-/5. Ankle dorsiflexors 4/5. Ankle plantarflexors 4/5. Sensation: Intact as to pain and light pressure in B LE THERA EX: Quadriceps sets with 5sh x 5 Ankle Df/PF x 10 Heel slides x 10 Straight leg raise up to 60 degrees at the hip x 5 LAQ x 10 Seated marches x 10 Bed Mobility/Transfers: Supine to sit standby assist Sit to stand contact guard assist Stand to sit standby assist Bed to chair standby assist Gait: Tolerated level surface ambulation of 150 feet using FWW with step through gait pattern and standby assist. Reported less pain in the knee with activity. No loss of balance. No shortness of breath. Denies lightheadedness. Balance: Static Sitting: Normal Dynamic Sitting: Normal Static Standing: Fair Dynamic Standing: Fair Special Tests: Mobility Limitations Standardized Measure [facility] 6 clicks Basic Mobility Inpatient Short Form: Raw Score: 23 CMS Score: 11% deficit Informed Consent/Education: Patient instructed in purpose of PT consult. Packet containing TKA exercise protocol has been given to patient. Education and training on initial set of exercises that can be done at home have been completed with patient and . Assessment: Patient requires the use of front wheeled walker for all mobility ADl performance to maximize independenceand reduce fall risk. Patient presents with clinical signs and symptoms consistent with current/admitting diagnoses that have resulted to mobility limitations, gait instability, generalized weakness, and impairment of motor control as demonstrated by the following impairment level findings: 1. Decreased strength to left knee major muscle groups 2. Impaired standing balance 3. Limitation of joint range of motion in left knee Impairments are contributing to the following functional limitations: 1. Inability to safely ambulate without assistive device 2. Increase completion time for mobility ADL 3. Increased fall risk Patient is assessed as a 09369 moderate complexity based on the following: History: 67-year-old male with impairment level findings, functional limitations, and past medical history as indicated above Examination: Demonstrable impairment in strength, balance, and mobility level with underlying impairments and functional limitations as documented above Presentation: Evolving Decision Makin moderate complexity Goals: N/A. PT evaluation and 1-2 treatment sessions only for functional mobility training using recommended AD and for HEP instruction. Plan of Care/Treatment Plan: N/A. PT evaluation and 1-2 treatment session only for functional mobility training using recommended AD and for HEP instruction. DISCHARGE RECOMMENDATIONS: Home when medically cleared by orthopedic surgeon. Recommend outpatient physical therapy services to optimize functional mobility outcomes and facilitate return to independent community ambulation assistive device TREATMENT CODE/TIME: 12339 x 20 minutes, 80925 x 15 minutes beginning at 16:16 PM. Thank you for the opportunity to participate in the care of this patient. Karen Roper PT, DPT, CLT [facility] [place], [place]
== END 2022-03-19 17:13 | disposition home or self-care (01) ==
PROVIDERS: PCP Internal Medicine; Visit Provider Student in an Organized Health Care Education/Training Program
PROC: (CPT 27447; principal; 2022-03-19 13:00)
DX: M17.12 Unilateral primary osteoarthritis, left knee (principal); J44.9 Chronic obstructive pulmonary disease, unspecified; E66.9 Obesity, unspecified; Z68.36 Body mass index [BMI] 36.0-36.9, adult
CPT/HCPCS: 27447; 76942; 97162; 97530; J0690; J1100; J2370; J2405; J2704

== ENCOUNTER 2022-04-03 11:01 | Outpatient (CLI) | payer BC, SELFPAY ==
--- NOTE | 2022-04-03 10:30 | DI.RAD_ITS ---
Exam(s) XR KNEE LT 1V EXAM: XR KNEE LT 1V CLINICAL HISTORY: 1ST POST OP L TKA. TECHNIQUE: 2D digital imaging was performed. COMPARISON: CR XR KNEE RT 2V AP,LAT from 02/27/2022 FINDINGS: Single lateral view: Components of the prosthesis appear to be in satisfactory position alignment. No fracture or looseni ng evident. There is evidence patellar resurfacing. IMPRESSION: DATA REPOSITORY: RADIATION DOSE DELIVERED:
--- NOTE | 2022-04-03 10:30 | DI.RAD_ITS ---
Exam(s) XR STANDING ALIGNMENT EXAM: XR STANDING ALIGNMENT CLINICAL HISTORY: 1ST POST OP L TKA. TECHNIQUE: 2D digital imaging was performed. COMPARISON: CR XR STANDING ALIGNMENT from 02/27/2022 FINDINGS: 3 views There has been interval placement of a left knee prosthesis which appears to be in satisfactory posit ion . moderate-advanced narrowing of the medial compartment of the opposite-right knee is again noted. T he lateral compartment of the right knee exhibits normal height. Both hips appear unremarkable. Right ankle unremarkable. There is medial tilting talar dome of the left ankle noted. No osteochondral defects nor degenerative changes talar dome. Otherwise bone density is normal. No osseous lesions IMPRESSION: DATA REPOSITORY: RADIATION DOSE DELIVERED:
== END 2022-04-03 11:02 | disposition home or self-care (01) ==
LOC: DIORS 11:01
PROVIDERS: PCP Internal Medicine; Referring Provider Internal Medicine; Visit Provider Student in an Organized Health Care Education/Training Program
DX: Z96.652 Presence of left artificial knee joint (principal)
CPT/HCPCS: 73560; 77073

== ENCOUNTER 2022-05-05 06:20 | Day surgery (SDC) | payer BC, SELFPAY ==
[2022-05-05 06:25] VITALS: BP 126/73; PULSE 61; RESP 16; TEMP 36; O2SAT 94
[2022-05-05] MEDS: Tropicam./Phenyleph. (1/2.5%) 5 ML BTL OS ×3 (06:28→06:44)
--- NOTE | 2022-05-05 06:59 | ANES.PREOP_ITS ---
General Info Date of Service Date Performed: 05/05/22 Height: 5 ft 11 in Weight: 104.4 kg Body Mass Index (BMI): 32.1 Surgical Procedure: Operation Date: 05/05/22 07:40 Proposed Procedure Side Surgeon p Cataract Extraction with IOL Implant Left Jaime Martinez MD Meds Allergies and Home Medications Allergies Allergy/AdvReac Type Severity Reaction Status Date / Time No Known Allergies Allergy Verified 05/05/22 06:31 Home Medication Medication Instructions Recorded quetiapine 100 mg tablet (Seroquel) 100 mg PO HS 08/09/12 verapamil 180 mg 24 hr 180 mg PO HS 09/15/17 capsule,extended release albuterol sulfate 90 mcg/actuation 2 puff inhalation Q4H PRN 03/25/19 aerosol inhaler (ProAir HFA) gabapentin 300 mg capsule 300 mg PO TID PRN 03/25/19 umeclidinium 62.5 mcg-vilanterol 1 inh inhalation HS 10/25/19 25 mcg/actuation powdr for inhalation (Anoro Ellipta) omeprazole 40 mg capsule,delayed 20 mg PO HS 01/13/22 release acetaminophen 500 mg tablet 500 mg PO Q6H PRN pain #60 tabs 03/19/22 meloxicam 7.5 mg tablet 7.5 mg PO DAILY 03/19/22 Current Visit Medications: Current Medications Generic Name Dose Route Start Last Admin Trade Name Freq PRN Reason Stop Dose Admin Acetaminophen 1,000 mg 05/05/22 06:00 Acetaminophen 500 Mg Tab PO Q4H PRN PRN Miscellaneous Medication 0 ml 05/05/22 06:00 Prednisolone 1%, Moxifloxacin 0.5%, Nepafenac 0.1% 5ml Btl OS DIRECTED [facility] Miscellaneous Medication 0 ml 05/05/22 06:00 05/05/22 06:44 Tropicam./Phenyleph. (1/2.5%) 5 Ml Btl OS 1 drp DIRECTED [facility] Administration Tetracaine HCl 0 ml 05/05/22 06:00 Tetracaine 0.5% 4 Ml Btl OS DIRECTED [facility] PFSH Active Problems Active Problems: Problem Status Onset Code History of total left knee replacement 03/19/22 Z96.652 Primary osteoarthritis of right knee M17.11 Medical History Medical History Acute nontraumatic kidney injury Pt. denies this Amputated great toe Atypical chest pain f/u with Dr. Cooley Pt. states he has heaviness on chest, but not cardiac related, states he had it worked up by by bingo cashier, was diagnosed with emphysema Kaye's esophagus Ceruminosis Cluster headaches COPD (chronic obstructive pulmonary disease) DIVERTICULOSIS SIGMOID Dyspnea on exertion Emphysema lung GERD Hammer toe Hiatal hernia History of tobacco abuse Hyperlipidemia Impacted cerumen, left ear Obesity (BMI 30.0-34.9) Osteoarthritis of knees, bilateral Pain in right lower leg Phantom limb pain PTSD (post-traumatic stress disorder) Medical History Comments:: 03/19/22 - smoked marijuana Surgical History Surgical History Amputation of great toe, left, traumatic With surgical revision Colonoscopy - IV Sedation (~2007) EGD - IV Sedation (~2010) History of colonoscopy (~04/2019) 2019 - tubular adenoma x3. MENISCUS REPAIR R Tobacco Smoking/Tobacco Use Status: Former Tobacco Use Alcohol Alcohol Intake: current Alcohol intake frequency: a few times a month Alcohol type: beer Substance Use Substance use: Daily Substance use type: marijuana Vital Signs and Lab Results Vital Signs Most Recent Vital Signs in EMR: Most Recent Vital Signs Temp Pulse Resp BP Pulse Ox 36 C L 61 16 126/73 94 05/05/22 06:25 05/05/22 06:25 05/05/22 06:25 05/05/22 06:25 05/05/22 06:25 Lab Results Blood Type / Crossmatch: No Data to Display Complete Blood Count: No Data to Display Complete Metabolic Panel: No Data to Display Liver Function Panel: No Data to Display Coagulation Panel: No Data to Display Cardiac Panel: No Data to Display Arterial Blood Gas: No Data to Display Venous Blood Gas: No Data to Display Pancreas Panel: No Data to Display Thyroid Panel: No Data to Display Infectious Disease: No Data to Display Blood Cultures: No Data to Display Toxicology Panel: No Data to Display Imaging and Studies Imaging and Studies Study information below may be from another EMR and interpreted by another provider. Please see original notes in EMR for more complete details. EKG Summary: PATIENT NAME: MARTHA ALBREHCT #: [id number] ORDERING PROVIDER: Gayathri RodriguezUNT #: [id number] PRIMARY CARE PROVIDER:RODNEY COOLEY MD DATE OF SERVICE: 10/25/19 : 1955PERFORMING LOCATION: ER APPROVED REPORT Exam: Resting ECG Patient Location: E HR:55 bpm ECG Measurements Heart Rate 55 AXIS UT 155 P 18 QRSd 161 QRS 65 QT 452 T19 QTc 433 <Conclusion> Sinus bradycardia...rate< 60 Right bundle branch block...QRSd>120, terminal axis(90,270). No acute ST elevation or depression. No old EKG to compare. Stress Test Summary: STRESS TEST PATIENT NAME: MARTHA ALBRECHT #: [id number] ADMITTING PROVIDER: JACQUE JACKSON MD #: [id number] PRIMARY CARE PROVIDER:NABILA JOSEPH M.D.DATE OF SERVICE: 09/06/15 : 1955 *[facility]* *[facility]* [address] [place] [address] Stress Electrocardiography Ilir protocol Date of study: 09/06/2015 *PATIENT PRESENTATION* Height: 180.3cm ((71in) ) Blood Pressure: Weight: 96.8kg ((213lb) ) BSA: 2.23m^2 Ordering physician: Landen Gutierrez Impressions: Normal study after maximal exercise. Indication: R07.9. R06.02. History: REASON FOR TESTING: RECENT ONSET OF CHEST HEAVINESS AND SHORTNESS OF BREATH WITH LEG PAIN INTERMITTANLY. HX:BARRETS ESOPHAGUS, ARTHRITIS OF BOTH KNEES. FAMILY HX:CVA AND PA IN FATHER, SMOKIN/ PPD X 40 YEARS. QUIT 3 WEEKS AGO EXCERCISE: NO REGULAR EXCERCISE, BUT ACTIVE LIFESTYLE. Risk factors: Current tobacco use. Cholesterol: 200mg/dl. HDL: 42mg/dl. LDL: 151mg/dl. Triglycerides: 51mg/dl. ALLERGIES: NKDA MEDICATIONS: IBUPROFEN 600 MG PRN, SEROQUEL 100 MG DAILY, PRILOSEC 20 MG DAILY. Protocol: Ilir protocol. Baseline ECG: SINUS RHYTHM, HR 60 BPM Normal ECG. Stress protocol: + +---+ + !Stage !HR !BP (mmHg) ! + +---+ + !Baseline supine !60 !112/66 (81) ! + +---+ + !Baseline standing !69 !116/78 (91) ! + +---+ + !Stage I; 1.7mph, 10degrees; 3 min !96 !150/70 (97) ! + +---+ + !Stage II; 2.5mph, 12degrees; 3 min!107! ! + +---+ + !Immediate post stress !143!194/70 (111)! + +---+ + !Recovery; 3 min !86 !150/80 (103)! + +---+ + !Recovery; 6 min !79 !112/68 (83) ! + +---+ + * Stress results: The rate-pressure product for the peak heart rate and blood pressure was 03932lw Hg/min. Stress ECG: TESTING ENDED BECAUSE OF FATIGUE AT 9 MINUTES AND 44 SECONDS MAX HR: 146 BPM, 90% OF TARGET NORMAL BLOOD PRESSURE RESPONSE NO ECTOPY NO SIGNIFICANT ST CHANGES Echocardiogram Summary: Patient Name: MARTHA ALBRECHT #: [id number]: ARTUR Ordering Provider: Rodney Cooley M.D. : [facility] Primary Care Provider: Rodney Cooley M.D.Date of Exam: 06/16/19ex: M Admission Date: 06/16/19 : 1955 Age: 64 Exam(s) a US:US echocardiogram APPROVED REPORT EXAM: Comprehensive 2D, Doppler, and color-flow Echocardiogram Patient Location: Out-Patient Reimbursement Consultant: Jacqueline Dickson RDCS (AE) Indications: Exertional Dyspnea Other Information Study Quality: Adequate. Technically limited study due to body habitus. Conclusion Left Ventricle : The left ventricle is normal size. The left ventricular systolic function is normal. The left ventricular ejection fraction is within the normal range. There is normal left ventricular wall thickness. There is normal LV segmental wall motion. The left ventricular diastolic function is normal. LVEF is 55-60%. Right Ventricle : The right ventricle is normal size. The right ventricular systolic function is normal. Atria : The left atrium size is normal. The right atrium size is normal. Valves: There are no hemodynamically significant valvular lesions. Great Vessels : IVC is normal in size and collapses >50% with inspiration. There is none of tricuspid regurgitation to estimate RVSP. There is no prior echocardiogram available for comparison. Carotid Artery Summary:: Patient Name: MARTHA ALBRECHT #: [id number]: ARTUR Ordering Provider: Rodney Cooley [facility].D[facility] Primary Care Provider: Rodney Cooley M.D.Date of Exam: 05/29/20Sex: M Admission Date: 05/29/20 : 1955 Age: 65 Exam(s) a US:US carotid EXAM: US CAROTID CLINICAL HISTORY: CAROTID ATHEROSCLEROSIS, I70.8 TECHNIQUE: Ultrasound performed using standard protocol. COMPARISON: US US ECHOCARDIOGRAM from 06/16/2019 FINDINGS: Duplex evaluation of the carotid circulation was performed according to the usual protocol. There is mild visible atheromatous plaque in the proximal internal and external carotid arteries on the right. There is bilateral antegrade vertebral flow. Flow velocities in the common internal and external carotid arteries are within normal limits bilaterally. IMPRESSION: No evidence of a hemodynamically significant carotid stenosis. Pulmonary Function Summary: Pulmonary Function Test PATIENT NAME: MARTHA ALBRECHT AUNIT #: [id number] ADMITTING PROVIDER: MICHEAL CASTELLANOS, [facility] #: [id number] PRIMARY CARE PROVIDER:RODNEY COOLEY MD DATE OF ADMIT: 05/25/19 : 1955 PULMONARY FUNCTION TEST REPORT Patient - Martha Albrecht DATE OF SERVICE May 25, 2019 REQUESTING PROVIDER Rdoney Cooley M.D. INTERPRETATION OF STUDY Spirometry shows moderately severe obstructive airways disease with significant bronchodilator response. LUNG VOLUMES - Lung volumes show no evidence of restriction. There is moderate hyperinflation and air trapping. DIFFUSION CAPACITY- Normal. AIRWAY RESISTANCE - Normal. IMPRESSION Moderately severe obstructive airways disease with significant bronchodilator response. This is associated with moderate hyperinflation and air trapping. When this study was compared to previous one from 03/21/16, the patient has a total of 760 cc decline in FVC. FEV1 has declined by 1010 cc. This is a significant interval decline. Clinical correlation recommended. Anesthesia Assessment and Plan Anesthesia History Personal History: No History of Anesthesia Complications Family History: No Family History of Anesthesia Complications Exercise Tolerance Exercise Tolerance: Metabolic Equivalents>4 Pertinent Negatives Pertinent Negatives: No Symptoms of GERD Cardiac & Pulmonary Exam Cardiac Exam: Normal S1/S2 Heart Sounds Pulmonary Exam: Clear Bilateral Breath Sounds Implantable Cardiac Device Does patient have a Pacemaker or an ICD?: No Airway Exam Known Difficult Airway: No Mallampati Class: 2 Mouth Opening: Normal (> 3cm) Thyromental Distance: Greater than 3 cm Neck Range of Motion: Full ROM Neck Circumference: Normal Teeth Condition: Normal Dentition ASA Classification ASA Score: ASA 3 Emergency Case?: No NPO Status NPO Status: NPO Clears >2 hours, Solids >8 hours Anesthesia Plan Resuscitation Status: Full Code Anesthesia Technique: MAC Anesthesia Airway Planned: Natural Airway Monitors Used: Standard Monitors
[2022-05-05 07:06] VITALS: BMI 32.1
[2022-05-05] MEDS: Lidocaine 1% Pres-Free 5 ML VIAL (07:33)
[2022-05-05] MEDS: Balanced Salt Soln.-PLUS 500 ML BAG (07:35)
[2022-05-05] MEDS: Lidocaine 2% Jelly 6 ML SYR (07:35)
[2022-05-05] MEDS: Povidone-Iodine Ophth 30 ML BTL (07:36)
[2022-05-05] MEDS: Duovisc Viscoelastic System EACH 1 EACH (07:36)
[2022-05-05] MEDS: Tetracaine 0.5% 4 ML BTL OS (07:37)
[2022-05-05 07:52] VITALS: BP 129/78; PULSE 58; RESP 16; TEMP 36.6; O2SAT 96
--- NOTE | 2022-05-05 07:54 | W.PM.DSUDISC ---
Date of service: 05/05/22 Time of Service: 07:54 Discharge Plan Disposition Patient Disposition: Home Discharge Details Attending Provider: Jaime Martinez Primary Care Provider: Rodney Cooley Home Meds and New Rx's Prescriptions: No Action quetiapine [Seroquel] 100 MG tablet 100 mg PO HS Rx Instructions: Take 1 tablet by mouth daily and may take repeat if necessary verapamil 180 MG capsule,ext rel. pellets 24 hr 180 mg PO HS gabapentin 300 mg capsule 300 mg PO TID PRN albuterol sulfate [ProAir HFA] 90 mcg/actuation HFA aerosol inhaler 2 puff IH Q4H PRN omeprazole 40 mg capsule,delayed release(DR/EC) 20 mg PO HS Anoro Ellipta 62.5-25 mcg/actuation blister with device 1 inh INHALATION HS Label Comments: INHALE ONE PUFF BY MOUTH EVERY DAY acetaminophen 500 mg tablet 500 mg PO Q6H PRN (Reason: pain) Qty: 60 2RF meloxicam 7.5 mg Tablet 7.5 mg PO DAILY Discharge Instructions Stand Alone Forms: Post-op Topical Cataract, Kulwinder Puente (DSU) Discharge Orders Discharge Orders: Discharge Order (Routine); Ordered 05/05/22 Ordered By: Jaime Martinez DS: Diagnosis Discharge Diagnosis (1) Nuclear sclerotic cataract of left eye: Status: Resolved (2) Posterior subcapsular age-related cataract of left eye: Status: Resolved
--- NOTE | 2022-05-05 07:55 | W.PM.OP ---
Date of service: 05/05/22 Time of Service: 07:55 Operative Note Operative Note DATE OF PROCEDURE: 05/05/22 PRE-OP DIAGNOSIS: Nuclear/posterior subcapsular cataract, left eye POST-OP DIAGNOSIS: same PROCEDURE: Cataract extraction using phacoemulsification with intraocular lens implant, left eye SURGEON: Jaime Martinez ANESTHESIA TYPE: Local By Surgeon and MAC Refer to Anesthesia Record PATHOLOGY: none sent COMPLICATIONS: None Patient was transported to: same day Patient's condition: stable Implants: Jose A and Jose A Tecnis Eyhance [id number] Indications: Progressive decreased vision due to cataract, left eye Procedure Description: CATARACT SURGERY OPERATIVE REPORT PREOPERATIVE DIAGNOSIS: 1. Nuclear/cortical cataract, left eye POSTOPERATIVE DIAGNOSIS: Same OPERATION: 1. Cataract extraction using phacoemulsification with posterior chamber intraocular lens implant, left eye. IOL: IOL Covered Buckle Assembler/Model: Jose A & Jose A Tecnis Eyhance DIB00 IOL Power: + 22.0 diopters IOL Serial Number: [id number] Optic Diameter: 6.0 mm Haptic/Overall Diameter: 13.0 mm PHACO INFO: SridharBundle Buyon Vision System with OZil and Active Fluidics Cumulative Dispersed Energy (CDE): 11.53 seconds SURGEON: Jaime Martinez MD, LANG ANESTHESIA: Monitored A [facility] (MAC), with local sub-tenon's anesthetic infiltration COMPLICATIONS: None SPECIMENS: None INDICATIONS FOR PROCEDURE: The patient is a 67-year-old gentleman with history of diminished visual acuity in his left eye secondary to the development of significant nuclear/posterior subcapsular cataract. He is significantly symptomatic from cataract, the option of cataract surgery was offered to the patient and he wished to proceed. PROCEDURE: The correct surgical eye was identified and marked as the left eye and the pupil was dilated in the preoperative area using mydriatics and cycloplegics. The dilated pupil size was 7.0 mm. The patient elected to proceed without oral sedation. The patient was brought to the operating room where cardiopulmonary monitoring was instituted and surgical time-out was performed, confirming the correct operative eye and IOL power. Topical anesthesia was administered and ophthalmic povidone-iodine 5% was instilled into the conjunctival fornices. Lidocaine gel was applied to the cornea and the javier-ocular area was prepped with Betadine 10% solution and draped in the usual sterile fashion for intraocular surgery, including an aperture drape. A Tegaderm transparent film dressing was cut in half and used to cover the lashes and lid margins. Care was taken to sequester the lashes and lid margins under the Tegaderm dressing. A lid speculum was placed between the lids of the operative eye and the Sridhar LuxOR Revalia operating microscope was maneuvered into position. Abdiel scissors were then used to make a conjunctival buttonhole approximately 6mm posterior to the limbus in the inferonasal quadrant. Blunt dissection was carried out to expose bare sclera, and a blunt-tipped sub-tenon?s anesthesia cannula was introduced and passed posteriorly along the globe where non-preserved plain lidocaine was injected into posterior sub-Tenon?s space. A sideport knife was used to make a paracentesis port superiorly/superiortemporally. Intraocular phenylephrine/lidocaine was injected int the anterior chamber.. The anterior chamber was filled with viscoelastic. A keratome knife was used to construct a 2-plane near-clear corneal tunnel extending 2.0mm into clear cornea temporally. A flap was raised on the anterior capsule and capsulorhexis forceps were used to complete a continuous curvilinear capsulorhexis of 5.0 mm. Balanced salt solution was then used to perform cortical cleaving hydrodissection and nuclear hydrodelineation until the lens could be freely rotated within the capsular bag. The lens nucleus was then disassembled and removed within the capsular bag and iris plane using phacoemulsification. Residual cortical material was removed using the 45-degree angled silicone I/A tip with 0.3mm port. The posterior capsule was carefully polished to remove as much residual lens epithelial cells as safely possible. There was some residual posterior subcapsular plaque superior to the visual axis which could not be safely removed. The capsular bag was then inflated and the anterior chamber deepened with viscoelastic. The lens implant described above was inserted into the capsular bag using the Jose A and Jose A Simplicity pre-loaded injector. . A Kuglen hook was used to dial the IOL into position. Residual viscoelastic was then removed first from posterior to the IOL, then from the anterior chamber using the I/A handpiece. The lens implant was noted to center nicely within the capsular bag. The incisions were stromally hydrated, and the anterior chamber was reformed using BSS. Then 0.5cc of moxifloxacin 1.0mg/ml were injected into the capsular bag and anterior chamber. The incisions were checked with a Weck spear and found to be secure. Several drops of ophthalmic povidone-iodine 5% were then applied to the eye followed by two drops of Imprimis combination prednisolone/moxifloxacin/nepafenac solution. The drapes were removed and a clear plastic protective eye shield was placed over the eye. The patient was then returned to Same Day Surgery in stable condition.
--- NOTE | 2022-05-05 08:05 | W.ANESPOSTOP ---
Postoperative Evaluation Date, Time and Location Date Performed: 05/05/22 Time Performed: 08:05 Patient Location: Day Surgery Unit Vital Signs Most Recent Imported Vital Signs: Most Recent Vital Signs Temp Pulse Resp BP Pulse Ox 36.6 C 58 L 16 129/78 96 05/05/22 07:52 05/05/22 07:52 05/05/22 07:52 05/05/22 07:52 05/05/22 07:52 Pain Score Most Recent Pain Score: Most Recent Pain Score Pain Level 0 05/05/22 07:52 Assessment Mental Status: Awake (Alert & Oriented to Patient Baseline) Airway and Respiratory Function: Patent airway with normal (patient baseline) respiratory exam Cardiovascular Function: Hemodynamically Stable Hydration Status: Adequately Hydrated Nausea & Vomiting: No Nausea or Vomiting Pain: Pt. Denies Any Pain Peripheral Nerve Block: Patient did not receive a nerve block
== END 2022-05-05 08:14 | disposition home or self-care (01) ==
LOC: SUR 06:21
PROVIDERS: PCP Internal Medicine; Visit Provider Ophthalmology
DX: H25.042 Posterior subcapsular polar age-related cataract, left eye (principal)
CPT/HCPCS: 66984

== ENCOUNTER 2022-05-21 07:26 | Day surgery (SDC) | payer BC, SELFPAY ==
[2022-05-21] VITALS (9 sets, daily range): BP systolic 109–135; BP diastolic 55–88; PULSE 54–72; RESP 14–18; TEMP 36.2–36.8; O2SAT 92–96; BMI 31.8
[2022-05-21] MEDS: Gabapentin 300 MG CAP PO (07:53)
[2022-05-21] MEDS: Celecoxib 200 MG CAP 400 MG PO (07:54)
[2022-05-21] MEDS: Acetaminophen 500 MG TAB 1000 MG PO (07:54)
[2022-05-21] MEDS: Lactated Ringers 1,000 ML 80 ML IV (08:21)
--- NOTE | 2022-05-21 09:14 | W.ANESPRE ---
General Info Date of Service Date Performed: 05/21/22 Height: 5 ft 11 in Weight: 103.4 kg Body Mass Index (BMI): 31.8 Surgical Procedure: Operation Date: 05/21/22 10:40 Proposed Procedure Side Surgeon p Knee Total Arthroplasty, Cementless CR Right Dakota Castellanos MD Meds Allergies and Home Medications Allergies Allergy/AdvReac Type Severity Reaction Status Date / Time No Known Allergies Allergy Verified 05/21/22 07:42 Home Medication Medication Instructions Recorded quetiapine 100 mg tablet (Seroquel) 100 mg PO HS 08/09/12 verapamil 180 mg 24 hr 180 mg PO HS 09/15/17 capsule,extended release albuterol sulfate 90 mcg/actuation 2 puff inhalation Q4H PRN 03/25/19 aerosol inhaler (ProAir HFA) gabapentin 300 mg capsule 300 mg PO TID PRN 03/25/19 umeclidinium 62.5 mcg-vilanterol 1 inh inhalation HS 10/25/19 25 mcg/actuation powdr for inhalation (Anoro Ellipta) omeprazole 40 mg capsule,delayed 20 mg PO HS 01/13/22 release acetaminophen 500 mg tablet 1,000 mg PO TID #90 tabs 05/21/22 aspirin 81 mg tablet,delayed 81 mg PO BID #60 tabs 05/21/22 release celecoxib 200 mg capsule 200 mg PO BID #60 caps 05/21/22 dexamethasone 4 mg tablet 4 mg PO DAILY #2 tabs 05/21/22 oxycodone 5 mg tablet 5 mg PO Q4H PRN pain #20 tabs 05/21/22 Current Visit Medications: Current Medications Generic Name Dose Route Start Last Admin Trade Name Freq PRN Reason Stop Dose Admin Acetaminophen 1,000 mg 05/21/22 06:00 05/21/22 07:54 Acetaminophen 500 Mg Tab PO 05/21/22 16:00 1,000 mg PREOP JACQUELINE Administration Celecoxib 400 mg 05/21/22 06:00 05/21/22 07:54 Celecoxib 200 Mg Cap PO 05/21/22 16:00 400 mg PREOP JACQUELINE Administration Gabapentin 300 mg 05/21/22 06:00 05/21/22 07:53 Gabapentin 300 Mg Cap PO 05/21/22 16:00 300 mg PREOP JACQUELINE Administration Tranexamic Acid 1,000 mg/ 60 mls @ 360 mls/hr 05/21/22 06:00 Sodium Chloride IVPB 05/21/22 16:00 PREOP JACQUELINE Ringer's Solution 1,000 mls @ 80 mls/hr 05/21/22 06:00 05/21/22 08:21 IV 06/19/22 23:59 80 mls/hr INFUSION JACQUELINE Administration Cefazolin Sodium/Dextrose 2 gm in 50 mls @ 100 mls/hr 05/21/22 06:00 Ancef Duplex IVPB 06/19/22 23:59 PREOP JACQUELINE IV Miscellaneous Supplies 1 each 05/21/22 06:00 Iv Access IV 06/19/22 23:59 DIRECTED JACQUELINE Sodium Chloride 0 ml 05/21/22 06:00 Normal Saline Flush 10 Ml Syr IV 06/19/22 23:59 PRN PRN Sodium Chloride 0 ml 05/21/22 06:00 Normal Saline 10 Ml Vial IJ 06/19/22 23:59 DIRECTED PRN Sterile Water 0 ml 05/21/22 06:00 Water,Injection,Sterile 10 Ml Vial IJ 06/19/22 23:59 DIRECTED PRN PFSH Active Problems Active Problems: Problem Status Onset Code Primary osteoarthritis of right knee M17.11 History of total left knee replacement 03/19/22 Z96.652 Nuclear sclerotic cataract of left eye H25.12 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 denies this Amputated great toe Atypical chest pain f/u with Dr. Cooley Pt. states he has heaviness on chest, but not cardiac related, states he had it worked up by by mineral technologist, was diagnosed with emphysema and GERD Kaye's esophagus Ceruminosis Cluster headaches COPD (chronic obstructive pulmonary disease) DIVERTICULOSIS SIGMOID Dyspnea on exertion Emphysema lung GERD Hammer toe Hiatal hernia History of tobacco abuse Hyperlipidemia Impacted cerumen, left ear Obesity (BMI 30.0-34.9) Osteoarthritis of knees, bilateral Pain in right lower leg Phantom limb pain PTSD (post-traumatic stress disorder) Pt. states he does not have any triggers that will affect surgery Surgical History Surgical History Amputation of great toe, left, traumatic With surgical revision Colonoscopy - IV Sedation (~2007) EGD - IV Sedation (~2010) History of colonoscopy (~04/2019) 2020 - tubular adenoma x3. MENISCUS REPAIR R Tobacco Smoking/Tobacco Use Status: Former Tobacco Use Alcohol Alcohol Intake: current Alcohol intake frequency: a few times a month Alcohol type: beer Substance Use Substance use: Daily Substance use type: marijuana Details: marijuana t-1 Vital Signs and Lab Results Vital Signs Most Recent Vital Signs in EMR: Most Recent Vital Signs Temp Pulse Resp BP Pulse Ox 36.7 C 69 18 117/79 93 05/21/22 07:37 05/21/22 07:37 05/21/22 07:37 05/21/22 07:37 05/21/22 07:37 Lab Results Blood Type / Crossmatch: No Data to Display Complete Blood Count: No Data to Display Complete Metabolic Panel: No Data to Display Liver Function Panel: No Data to Display Coagulation Panel: No Data to Display Cardiac Panel: No Data to Display Arterial Blood Gas: No Data to Display Venous Blood Gas: No Data to Display Pancreas Panel: No Data to Display Thyroid Panel: No Data to Display Infectious Disease: No Data to Display Blood Cultures: No Data to Display Toxicology Panel: No Data to Display Imaging and Studies Imaging and Studies Study information below may be from another EMR and interpreted by another provider. Please see original notes in EMR for more complete details. EKG Summary: PATIENT NAME: MARTHA ALBRECHT #: [id number] ORDERING PROVIDER: Gayathri Rodriguez #: [id number] PRIMARY CARE PROVIDER:RODNEY COOLEY MD DATE OF SERVICE: 10/25/19 : 1955PERFORMING LOCATION: ER APPROVED REPORT Exam: Resting ECG Patient Location: E HR:55 bpm ECG Measurements Heart Rate 55 AXIS UT 155 P 18 QRSd 161 QRS 65 QT 452 T19 QTc 433 <Conclusion> Sinus bradycardia...rate< 60 Right bundle branch block...QRSd>120, terminal axis(90,270). No acute ST elevation or depression. No old EKG to compare. Stress Test Summary: STRESS TEST PATIENT NAME: MARTHA ALBRECHT #: [id number] ADMITTING PROVIDER: MANUEL CASTELLANOS DAVIHUI #: [id number] PRIMARY CARE PROVIDER:NABILA JOSEPH M.D.DATE OF SERVICE: 09/06/15 : 1955 *[facility]* *[facility]* [address] [place] [address] Stress Electrocardiography Ilir protocol Date of study: 09/06/2015 *PATIENT PRESENTATION* Height: 180.3cm ((71in) ) Blood Pressure: Weight: 96.8kg ((213lb) ) BSA: 2.23m^2 Ordering physician: Landen Gutierrez Impressions: Normal study after maximal exercise. Indication: R07.9. R06.02. History: REASON FOR TESTING: RECENT ONSET OF CHEST HEAVINESS AND SHORTNESS OF BREATH WITH LEG PAIN INTERMITTANLY. HX:BARRETS ESOPHAGUS, ARTHRITIS OF BOTH KNEES. FAMILY HX:CVA AND NV IN FATHER, SMOKIN/3 PPD X 40 YEARS. QUIT 3 WEEKS AGO EXCERCISE: NO REGULAR EXCERCISE, BUT ACTIVE LIFESTYLE. Risk factors: Current tobacco use. Cholesterol: 200mg/dl. HDL: 42mg/dl. LDL: 151mg/dl. Triglycerides: 51mg/dl. ALLERGIES: NKDA MEDICATIONS: IBUPROFEN 600 MG PRN, SEROQUEL 100 MG DAILY, PRILOSEC 20 MG DAILY. Protocol: Ilir protocol. Baseline ECG: SINUS RHYTHM, HR 60 BPM Normal ECG. Stress protocol: + +---+ + !Stage !HR !BP (mmHg) ! + +---+ + !Baseline supine !60 !112/66 (81) ! + +---+ + !Baseline standing !69 !116/78 (91) ! + +---+ + !Stage I; 1.7mph, 10degrees; 3 min !96 !150/70 (97) ! + +---+ + !Stage II; 2.5mph, 12degrees; 3 min!107! ! + +---+ + !Immediate post stress !143!194/70 (111)! + +---+ + !Recovery; 3 min !86 !150/80 (103)! + +---+ + !Recovery; 6 min !79 !112/68 (83) ! + +---+ + * Stress results: The rate-pressure product for the peak heart rate and blood pressure was 14293iz Hg/min. Stress ECG: TESTING ENDED BECAUSE OF FATIGUE AT 9 MINUTES AND 44 SECONDS MAX HR: 146 BPM, 90% OF TARGET NORMAL BLOOD PRESSURE RESPONSE NO ECTOPY NO SIGNIFICANT ST CHANGES Echocardiogram Summary: Patient Name: MARTHA ALBRECHT #: [id number]: ARTUR Ordering Provider: Rodney Cooley M.D. : REG CLI Primary Care Provider: Rodney Cooley M.D.Date of Exam: 06/16/19ex: M Admission Date: 06/16/19 : 1955 Age: 64 Exam(s) a US:US echocardiogram APPROVED REPORT EXAM: Comprehensive 2D, Doppler, and color-flow Echocardiogram Patient Location: Out-Patient Hooker Inspector: Jacqueline Dickson RDCS (AE) Indications: Exertional Dyspnea Other Information Study Quality: Adequate. Technically limited study due to body habitus. Conclusion Left Ventricle : The left ventricle is normal size. The left ventricular systolic function is normal. The left ventricular ejection fraction is within the normal range. There is normal left ventricular wall thickness. There is normal LV segmental wall motion. The left ventricular diastolic function is normal. LVEF is 55-60%. Right Ventricle : The right ventricle is normal size. The right ventricular systolic function is normal. Atria : The left atrium size is normal. The right atrium size is normal. Valves: There are no hemodynamically significant valvular lesions. Great Vessels : IVC is normal in size and collapses >50% with inspiration. There is none of tricuspid regurgitation to estimate RVSP. There is no prior echocardiogram available for comparison. Carotid Artery Summary:: Patient Name: MARTHA ALBRECHT #: [id number]: DI Ordering Provider: Rodney Cooley M.D. : [facility] Primary Care Provider: Rodney Cooley M.D.Date of Exam: 05/29/20Sex: M Admission Date: 05/29/20 : 1955 Age: 65 Exam(s) a US:US carotid EXAM: US CAROTID CLINICAL HISTORY: CAROTID ATHEROSCLEROSIS, I70.8 TECHNIQUE: Ultrasound performed using standard protocol. COMPARISON: US US ECHOCARDIOGRAM from 06/16/2019 FINDINGS: Duplex evaluation of the carotid circulation was performed according to the usual protocol. There is mild visible atheromatous plaque in the proximal internal and external carotid arteries on the right. There is bilateral antegrade vertebral flow. Flow velocities in the common internal and external carotid arteries are within normal limits bilaterally. IMPRESSION: No evidence of a hemodynamically significant carotid stenosis. Pulmonary Function Summary: Pulmonary Function Test PATIENT NAME: MARTHA ALBRECHT #: [id number] ADMITTING PROVIDER: MICHEAL CASTELLANOS, [facility] #[facility] [id number] PRIMARY CARE PROVIDER:RODNEY COOLEY MD DATE OF ADMIT: 05/25/19 : 1955 PULMONARY FUNCTION TEST REPORT Patient - Martha Albrecht DATE OF SERVICE May 25, 2019 REQUESTING PROVIDER Rodney Cooley M.D. INTERPRETATION OF STUDY Spirometry shows moderately severe obstructive airways disease with significant bronchodilator response. LUNG VOLUMES - Lung volumes show no evidence of restriction. There is moderate hyperinflation and air trapping. DIFFUSION CAPACITY- Normal. AIRWAY RESISTANCE - Normal. IMPRESSION Moderately severe obstructive airways disease with significant bronchodilator response. This is associated with moderate hyperinflation and air trapping. When this study was compared to previous one from 03/21/16, the patient has a total of 760 cc decline in FVC. FEV1 has declined by 1010 cc. This is a significant interval decline. Clinical correlation recommended. Anesthesia Assessment and Plan Anesthesia History Personal History: No History of Anesthesia Complications Family History: No Family History of Anesthesia Complications Exercise Tolerance Exercise Tolerance: Metabolic Equivalents>4 Pertinent Negatives Pertinent Negatives: No Symptoms of GERD and No History of CVA/TIA Cardiac & Pulmonary Exam Cardiac Exam: Normal S1/S2 Heart Sounds Pulmonary Exam: Clear Bilateral Breath Sounds Implantable Cardiac Device Does patient have a Pacemaker or an ICD?: No Airway Exam Known Difficult Airway: No Mallampati Class: 2 Mouth Opening: Normal (> 3cm) Thyromental Distance: Greater than 3 cm Neck Range of Motion: Full ROM Neck Circumference: Normal Teeth Condition: Normal Dentition ASA Classification ASA Score: ASA 3 Emergency Case?: No NPO Status NPO Status: NPO Clears >2 hours, Solids >8 hours Anesthesia Plan Resuscitation Status: Full Code Anesthesia Technique: Spinal Anesthesia Airway Planned: Natural Airway Pain Management: Surgeon and patient request nerve block Monitors Used: Standard Monitors
--- NOTE | 2022-05-21 09:40 | W.PM.DSUDISC ---
Date of service: 05/21/22 Time of Service: 09:40 Discharge Plan Disposition Patient Disposition: Home Condition: Good Discharge Details Reason For Visit: R TKR Attending Provider: Dakota Castellanos Primary Care Provider: Rodney Cooley Home Meds and New Rx's Prescriptions: New acetaminophen 500 mg tablet 1,000 mg PO TID Qty: 90 3RF aspirin 81 mg tablet,delayed release (DR/EC) 81 mg PO BID Qty: 60 0RF celecoxib 200 mg capsule 200 mg PO BID Qty: 60 2RF dexamethasone 4 mg tablet 4 mg PO DAILY Qty: 2 0RF oxycodone 5 mg tablet 5 mg PO Q4H MDD 6 tabs PRN (Reason: pain) Qty: 20 0RF Continued quetiapine [Seroquel] 100 MG tablet 100 mg PO HS Rx Instructions: Take 1 tablet by mouth daily and may take repeat if necessary verapamil 180 MG capsule,ext rel. pellets 24 hr 180 mg PO HS gabapentin 300 mg capsule 300 mg PO TID PRN albuterol sulfate [ProAir HFA] 90 mcg/actuation HFA aerosol inhaler 2 puff IH Q4H PRN omeprazole 40 mg capsule,delayed release(DR/EC) 20 mg PO HS Anoro Ellipta 62.5-25 mcg/actuation blister with device 1 inh INHALATION HS Patient Comments: INHALE ONE PUFF BY MOUTH EVERY DAY Discontinued acetaminophen 500 mg tablet 500 mg PO Q6H PRN (Reason: pain) Qty: 60 2RF meloxicam 7.5 mg Tablet 7.5 mg PO DAILY Discharge Instructions Additional Instructions: Total Knee Discharge Instructions Activity: The most important activity is to walk and to work on gentle motion (both flexion and extension). You should try to take short walks a few times a day. It is important that when resting you work on keeping the knee straight. Avoid putting a pillow behind the knee as this will encourage flexion. Work on range of motion exercises as provided by Physical Therapy. - Start outpatient physical therapy within 2 weeks. - You should wear the SYED hose on both legs for 2 weeks. You may remove these at night. You may also use any compression sock in place of the SYED hose. - Utilize [employer] to review exercises, see videos on exercises and obtain basic information pertaining to your surgery and your recovery. Dressing: Remove the Lance wrap by 2 days after your surgery and put on the SYED stocking given to you from the hospital. Keep the surgical dressing (underneath the LANCE wrap) in place for at least one week. After the first week it may be removed and replaced with light gauze and tape or nothing. The wound and dressing may get wet after 3 days but avoid soaking the dressing or otherwise it will need to be changed. Many people prefer covering the dressing with cling wrap (saran wrap) to minimize it from getting soaked. If it gets wet, just pat dry. If it starts to peel off then it will need to be changed. Medications: - You should take Tylenol and anti-inflammatory Celebrex as your primary pain control medications. If the Celebrex is too expensive or not covered, please call the office for another alternative (Advil/Ibuprofen or Naproxen/Aleve) - You have been prescribed a stronger pain medication Oxycodone for breakthrough pain, take as needed as prescribed. - You have will continue to use your omeprazole to help reduce stomach acid and reflux. - You will continue your Gabapentin for restlessness and nerve pain. - You will be taking Aspirin 81mg twice a day for DVT prevention unless instructed otherwise. - You have also been prescribed Decadron to take to control post-operative nausea and pain. You will start this tomorrow. - If you have constipation you should take Colace or Miralax (both [id number]). It takes most people 3-4 days to have a bowel movement. Follow-up: 2 weeks If you have any acute concerns or questions, please do not hesitate to contact the office at [phone]. You may contact Dr. Castellanos with any questions after hours through the hospital at [phone] or on his cell phone at [phone]. Referrals: Dakota Castellanos MD [ [facility] STAFF PHYSICIAN] - Equipment/Supplies: Walker Activity:: Activity as Tolerated Shower/Bathe:: 72 hours DS: Diagnosis Discharge Diagnosis (1) Primary osteoarthritis of right knee: Status: Acute
[2022-05-21] MEDS: ceFAZolin 2 GM/50 ML BAG IVPB (10:27)
--- NOTE | 2022-05-21 11:01 | W.ANESNERVE ---
Nerve Block Single Injection Procedure Date and Time Date Performed: 05/21/22 Procedure Start: 10:00 Location Where Procedure Performed Procedure Location: Day Surgery Unit Reason Performed: Postoperative Analgesia Requesting Provider: Dakota Castellanos Timeout Performed Timeout Performed: Yes Monitoring Used ECG, Blood Pressure, SpO2, ETCO2 and See EMR for corresponding vital signs Sterility Sterility: Hand Hygiene, Surgical Cap, Surgical Mask, Sterile Gloves and Chlorhexidine Sedation Given During Procedure Sedation Given (Indicate Dose Given): No Sedation given Patient Mental Status Patient Mental Status: Awake Nerve Block 1st Nerve Block: Laterality: Right Block Type: Adductor Canal Ultrasound Image Saved?: Yes Needle / Catheter Used: 100mm SonoPlex II Local Anesthetic Bolus (Indicate Dose Given): Lidocaine used for local infiltration of skin, Injected in 3-5ml increments after negative blood aspiration and Bupivacaine 0.25% Dose:: 15 ml Additives (Indicate Dose Given): None Ultrasound: Sterile probe cover and gel used Nerve Stimulator: Not Used Paresthesia: Right Paresthesia Duration: Transient Procedure Tolerated: No Complications Procedure Outcome: Successful Performed By: Nadia Cintron Supervised By: Jm Hdez
--- NOTE | 2022-05-21 14:08 | W.ANESPOSTOP ---
Postoperative Evaluation Date, Time and Location Date Performed: 05/21/22 Time Performed: 14:08 Patient Location: Day Surgery Unit Vital Signs Most Recent Imported Vital Signs: Most Recent Vital Signs Temp Pulse Resp BP Pulse Ox 36.5 C 60 18 129/72 96 05/21/22 13:19 05/21/22 13:19 05/21/22 13:19 05/21/22 13:19 05/21/22 13:19 Pain Score Most Recent Pain Score: Most Recent Pain Score Pain Level 0 05/21/22 13:19 Assessment Mental Status: Awake (Alert & Oriented to Patient Baseline) Airway and Respiratory Function: Patent airway with normal (patient baseline) respiratory exam Cardiovascular Function: Hemodynamically Stable Hydration Status: Adequately Hydrated Nausea & Vomiting: No Nausea or Vomiting Pain: Pt. Denies Any Pain Peripheral Nerve Block: Patient did not receive a nerve block
[2022-05-21] MEDS: oxyCODONE 5 MG TAB PO (14:19)
--- NOTE | 2022-05-21 14:39 | W.PM.OP ---
Date of service: 05/21/22 Time of Service: 12:00 Operative Note Operative Note DATE OF PROCEDURE: 05/21/22 PRE-OP DIAGNOSIS: Right Knee Osteoarthritis POST-OP DIAGNOSIS: same PROCEDURE: Right Total Knee Replacement SURGEON: Dakota Castellanos ANESTHESIA TYPE: Spinal Refer to Anesthesia Record ESTIMATED BLOOD LOSS: 200 PATHOLOGY: none sent TOURNIQUET TIME: 0 COMPLICATIONS: None Patient was transported to: PACU Patient's condition: stable Implants: 1. Depuy Attune Cementless Cruciate Retaining Femoral Component, Size 7 2. Depuy Attune Cementless Fixed Platform Tibial Component, Size 7 3. Depuy Attune 7x7mm CR/FP Poly 4. Depuy Attune Patellar Component, Size 41 Indications: I have seen Jm in clinic for symptoms of knee arthritis, confirmed with radiographic findings. He has exhausted nonoperative methods and was having significant limitations in daily function and desired better function and less pain. I discussed the technical details of a knee replacement. I explained the risks of the procedure to include, but not limited to, bleeding, infection, pain, stiffness, fracture, damage to nerves and vessels, damage to muscles and tendons, loosening, need for repeat procedure, blood clot and cardiopulmonary demise. Despite these risks, Jm elected to proceed. Findings: There was significant signs of arthritis throughout the knee. Procedure Description: Jm was greeted in the preoperative holding area where the correct side was identified and marked. The consent was reviewed with the patient and signed. The history and physical was updated. All questions were answered. Preoperative medications were administered: Acetaminophen 1000mg, Celebrex 400mg, and Gabapentin 300mg. An adductor canal block was then administered by the anesthesia team in the PACU. Jm was taken back to the operating room. A spinal anesthestic was then administered. The patient was placed into the supine position on the operating room table. A nonsterile tourniquet was placed high onto the leg but only used for cementing. Posts were placed for positioning during the procedure. All bony prominences were well padded. Prophylactic antibiotics in the form of Cefazolin were administered. 1g of Tranxemic Acid was given intravenously within 30 minutes of incision. The right leg was then prepped with Chloraprep and draped in a standard fashion with impervious stockinette. A second prep with Chloraprep was performed prior to application of Iodine impregnated skin protection. A timeout to confirm correct identity, side and site, procedure, allergies, anesthesia, and medical concerns was performed. With the knee in some flexion, a midline incision was made overlying the knee. Full thickness skin flaps were raised once the extensor mechanism was encountered. These were raised medially and laterally. Any bleeding was controlled with electrocautery. Once the extensor mechanism was fully exposed, a medial parapatellar arthrotomy was performed in a flexed position. All bleeding from the arthrotomy and the geniculate arteries was coagulated. A medial subperiosteal peel was performed with electrocautery to the midcoronal plane. The fat pad was removed while keeping the patellar tendon protected. The anterior distal femur synovium was removed for later visualization. The ACL and PCL were resected and the anterior horn of the lateral meniscus was transected. The knee was then flexed with the patella everted. Large osteophytes from the tibia were removed. Large osteophytes from the femur were removed. Using a step drill, and based on preoperative templating, the femoral canal was entered. This was done with a step drill without any difficulty. The intramedullary distal femoral cut guide was inserted, set to a 6 degree valgus cut and 9mm cut thickness. The distal femoral cut guide was then held in position and pinned. With the soft tissues protected, the distal cut was performed. This was passed over a few times to ensure a planar cut. I then turned attention to the tibia. The extramedullary guide was placed onto the leg. The distal aspect was slid medial to adjust for position of center of ankle and stay in line with shaft of the tibia. Approximately 3-5 degrees of posterior slope was kept in the proximal cutting guide. The center of the guide was aligned with the PCL. The stylus was used to assess cut thickness. The medial side, most involved side, was set for a 4mm cut. This was then held in position and pinned into place with 2 additional pins and a cross pin for stability. The medial and lateral collateral ligaments were protected and the cut was performed. With this completed, it was assessed and noted to be of appropriate dimensions. The guide was removed. A spacer block was inserted and the knee was brought into extension. The 6mm spacer block provided full extension, without hyperextension and with stability of both the medial and lateral collateral ligaments was assessed. The pins from the femur and the tibia were then removed. The distal femur was then sized. The anterior stylus was placed onto the lateral ridge of the anterior femur. This indicated a size 7 femur. The external rotation of the guide was adjusted to 3 degrees to match the epicondylar axis, perpendicular to Hang?s line. The 4-in-1 cutting guide was the placed. The posterior medial femur cut was evaluated and appeared of good thickness. The spacer block was inserted underneath the cutting guide and stability was confirmed in 90 degrees of flexion. An aubrey wing was used to confirm appropriate position of the anterior cut to avoid notching. This cutting guide was ensured to be flush on the cut surface and then pinned into place with headed pins. While protecting the soft tissues, quad tendon, and collateral ligaments, the anterior and posterior cuts were performed with a saw. The central two pins were removed and the posterior and anterior chamfers were cut next. The notch-cutting guide was placed. This was pinned to lateralize the femoral component as much as possible while keeping it flush on the cut surface. This was then pinned into position. A reciprocating saw was used to make the notch cut. A rasp smoothed the cut surfaces. The medial and lateral menisci were removed. A trial femoral component was then inserted, impacted down to the cut surfaces, and the lug holes were drilled. A provisional trial tibial component was placed and the knee was brought through range of motion. The polyethylene was trialed until there was good flexion and extension with excellent stability to the medial and lateral collaterals. The patella was tracking without thumbs. A size 7mm polyethylene component provided the best range of motion and stability with less than 2mm gapping with medial and lateral stress and full extension without significant hyperextension. The tibial cut surface was fully exposed. The tibia was then sized as a 7. The tibia had been previously marked during trialing to correspond to the center of the tibial component to help with rotation. The trial was aligned to this fam, approximately rotated to the medial 1/3rd of the tibial tubercle. The trial was pinned into place. The tibia was prepared with a reamer and a keel punch and lug holes. The knee was then brought into extension and the patella was measured as 28mm. Using the patellar clamp and cut guide, this was resected to a flat surface with at least 13mm of thickness remaining. The size 41 patella fit the best. This was oriented and then clamped into position. The lugs were drilled. The trial components were removed. The final components were opened on the back table. The periosteal and capsular tissues, especially posteriorly, around the knee were then systematically injected with a periarticular cocktail consisting of 246mg of Ropivacaine, 0.5mg of Epinephrine, 0.08mg of Clonidine, and 30mg of Ketorolac, diluted to 100cc. On the back table, with the implants opened, the cement was mixed. One batch of high viscosity cement was prepared with vacuum assistance. After the cement was ready a small amount was placed on the cut surface of the patella and the patellar button was clamped into position and held. While the cement was hardening, the cementless knee components were placed. Starting with the tibial component, the tibia was subluxed anteriorly and the lug holes of the component were lined up. The tibia was then impacted with an impactor and mallet until the tibial component was in contact with the tibia. The final polyethylene component was inserted. Then, the femoral component was inserted. The lug holes were aligned and the component was impacted into position. The knee was irrigated with Surgiphor Betadine solution. This was allowed to sit in the knee for 3 minutes and then it was irrigated out with saline. After the cement had finally cured, approximately 15min, the clamp was removed from the patella and the knee was taken through range of motion. The patella was tracking with a no-thumbs technique. The capsule was then reapproximated with a No. 1 Vicryl at multiple locations. The capsule was finally closed with a No. 2 Stratafix, barbed suture. The second dosing of 1g TXA was started. Deep tissues were then reapproximated with 0 Vicryl and 2-0 Vicryl. The skin was closed with a running 3-0 Monocryl in a subcuticular fashion. This was reinforced with skin glue. A Mepilex silver dressing was applied along with a [id number] MARIA GUADALUPE wrap. A CryoCuff was applied. Jm was transferred to the hospital bed without difficulty an suffering no apparent complication. Jm has a good prognosis. Physical therapy will start today and without restrictions, weight-bearing as tolerated. Aspirin 81mg BID will be used for DVT prophylaxis.
--- NOTE | 2022-05-21 15:15 | IN_ITS ---
PT Notes Visit Reasons: R TKR Physical Therapy Day Surgery Initial Evaluation Date: 05/21/2022 Referring Doctor: LETHA Lane PT Orders: PT CONSULT: 'S/P Ortho Surgery Precautions: WBAT on the R LE with AD. Patient Profile/Admitting Diagnosis: Patient is a 67-year-old male patient with degenerative joint disease of the R knee S/P L total knee arthroplasty on postoperative day 0. Patient is also 10 weeks s/p right TKA. PMHX: Medical History?(Updated 02/27/22 @ 09:[address]) Acute nontraumatic kidney injury Pt. denies thisAmputated great toe Atypical chest pain f/u with Dr. Cooley Pt. states he has heaviness on chest, but not cardiac related, states he had it worked up by by cut lace machine operator, was diagnosed with? emphysema Kaye's esophagus Ceruminosis Cluster headaches COPD (chronic obstructive pulmonary disease) DIVERTICULOSIS SIGMOID Dyspnea on exertion Emphysema lung GERD Hammer toe Hiatal hernia History of tobacco abuse Hyperlipidemia Impacted cerumen, left ear Obesity (BMI 30.0-34.9) Osteoarthritis of knees, bilateral Pain in right lower leg Phantom limb pain PTSD (post-traumatic stress disorder) Surgical History?(Updated 03/10/22 @ 15:[address]) Amputation of great toe, left, traumatic With surgical revision Colonoscopy - IV Sedation (~2007) EGD - IV Sedation (~2010) History of colonoscopy (~04/2019) 2020 - tubular adenoma? x3.MENISCUS REPAIR R Social History/Home Situation: Patient lives with in a private home with two steps to enter with a rail on one side. Independent with all aspects of ADLs prior to surgery. Had recently resumed reciprocal stair management, loading wood stove, etc., following his right TKA. 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 Has sit-stand desk. Equipment Owned/DME: Bilateral axillary crutches, FWW Subjective: Agreeable to consult.?? Denies headache, chest pain, and lightheadedness throughout session. Objective: General Observation: Pat present inside room during evaluation.? MARIA GUADALUPE wraps to RLE.? Cryocuff to R knee.? Mental Status: Alert and oriented x 4 Pain: 3/10 right knee ROM: Left Lower Extremity: Hip flexion WFL. Hip abduction WFL. Knee flexion dem onstrated functionally to approx 95*, with patient reporting 125* at last PT session (not assessed to endrange today). Ankle dorsiflexion WFL. Ankle plantarflexion WFL. Left Lower Extremity: Hip flexion WFL. Hip abduction WFL. Knee flexion 0 degres to 100 degrees.? Extension ankle dorsiflexion WFL. Ankle plantarflexion WFL. Strength: Left Lower Extremity: WFL. Quads 3/5 or greater. Right Lower Extremity:Hip flexors 4/5. Hip abductors 4/5. Knee flexors 3-/5. Knee extensors 3/5. Ankle dorsiflexors 1/5. Ankle plantarflexors 4/5. Able to perform SLR without extension lag. Sensation: Intact as to pain and light pressure in B LE THERA EX: Quadriceps sets 10x 5 sec holds Ankle Df/PF x 10, AA into DF with attempts to isometrically hold at endrange (unable) Heel slides x 10 Straight leg raise up to 60 degrees at the hip x 5 Bed Mobility/Transfers: Supine to sit standby assist Sit to stand contact guard assist Stand to sit standby assist Bed to chair standby assist Gait: Tolerated level surface ambulation of 150 feet using FWW with step through gait pattern and standby assist.? Cues for clearance of right foot for safety. Reported less pain in the knee with activity.? No loss of balance.? No shortness of breath. Denies lightheadedness. Manages therapeutic stairs 4x3, 6x2 with bilat rails, supervision only . Balance: Static Sitting: Normal Dynamic Sitting: Normal Static Standing: Fair Dynamic Standing: Fair Informed Consent/Education:? Patient instructed in purpose of PT consult.? Packet containing TKA exercise protocol has been given to patient.? Education and training on initial set of exercises that can be done at home have been completed with patient and . Treatment: Initial Evaluation: 80171 Therapeutic Activities (18946): Gait training as above, with cues for right foot clearance. Instructed in safe transfer techniques, with patient requiring min A for transfer to toilet initially, then able to complete sit-stand transfers to chair with supervision only. He was instructed in home program and provided with handouts for HEP as noted above. Assessment: Jm is a 67 year old male presenting s/p right TKA post op day 0. Complicating factors include post-operative weakness into DF, which Dr. Castellanos is aware of. Additionally, patient is 10 weeks s/p left TKA. He demonstrates safety and mobility sufficient to allow for safe return home with family support. Requires use of FWW for all ambulation at this time. He currently demonstrates the following impairment level findings: 1.? Decreased RLE strength 2.? Impaired standing balance 3.? Limitation of joint range of motion in right knee 4. right foot drop Impairments are contributing to the following functional limitations: 1.? Inability to safely ambulate without assistive device 2.? Increase completion time for mobility ADL 3.? Increased fall risk Patient [place] [id number] low complexity based on the following: History: 67-year-old male with impairment level findings, functional limitations, and past medical history as indicated above Examination: Demonstrable impairment in strength, balance, and mobility level with underlying impairments and functional limitations as documented above Presentation: Evolving Decision Makin low complexity Goals: N/A.? PT evaluation only for functional mobility training using recommended AD and for HEP instruction. Plan of Care/Treatment Plan: No further PT intervention required in acute care setting. DISCHARGE RECOMMENDATIONS: Home when medically cleared by orthopedic surgeon.? Recommend outpatient physical therapy services to optimize functional mobility outcomes and facilitate return to independent community ambulation assistive device TREATMENT CODE/TIME: 50101 x 20 minutes, 11001 x 20 minutes beginning at 2:35 Thank you for the opportunity to participate in the care of this patient.
== END 2022-05-21 15:53 | disposition home or self-care (01) ==
PROVIDERS: PCP Internal Medicine; Visit Provider Student in an Organized Health Care Education/Training Program
PROC: (CPT 27447; principal; 2022-05-21 10:30)
DX: M17.11 Unilateral primary osteoarthritis, right knee (principal)
CPT/HCPCS: 27447; 76942; 97161; 97530; J0690; J1100; J2250; J2370; J2405

== ENCOUNTER 2022-06-06 12:08 | Outpatient (CLI) | payer BC, SELFPAY ==
--- NOTE | 2022-06-06 08:15 | DI.RAD_ITS ---
Exam(s) XR STANDING ALIGNMENT XR KNEE RT 1V EXAM: XR STANDING ALIGNMENT and XR knee RT 1 V CLINICAL HISTORY: 1ST POST OP R TKA. TECHNIQUE: 2D digital imaging was performed. Five images were obtained. COMPARISON: CR XR STANDING ALIGNMENT from 04/03/2022 FINDINGS: BONES: The hips are well maintained. There are now bilateral total knee replacements. Since the coleman or examination the patient has undergone a right total knee replacement. The orthopedic hardware nori ears in good position. The ankles are well maintained.There is no significant leg length discrepancy . SOFT TISSUE: There is mild soft tissue swelling around the knee. IMPRESSION: Status post bilateral total knee replacements. DATA REPOSITORY: RADIATION DOSE DELIVERED:
== END 2022-06-06 12:09 | disposition home or self-care (01) ==
LOC: DIORS 11-25 12:09
PROVIDERS: PCP Family Medicine; Visit Provider Physician Assistant
DX: Z96.651 Presence of right artificial knee joint (principal); Z47.1 Aftercare following joint replacement surgery; Z96.652 Presence of left artificial knee joint
CPT/HCPCS: 73560; 77073

== ENCOUNTER 2023-05-18 15:53 | Outpatient (CLI) | payer OTHER, SELFPAY ==
--- NOTE | 2023-05-18 11:30 | DI.RAD_ITS ---
Exam(s) XR KNEE LT 2V AP,LAT EXAM: XR KNEE LT 2V AP,LAT CLINICAL HISTORY: F/U BILAT TKR. TECHNIQUE: 2D digital imaging was performed. Two images were obtained. AP and lateral views were ob tained. COMPARISON: CR XR KNEE LT 1V from 04/03/2022 CR XR STANDING ALIGNMENT from 04/03/2022 FINDINGS: BONES: There are stable post operative changes of a left total knee replacement present. No fracture or dislocation. JOINTS: The orthopedic hardware is in good position. No evidence of hardware loosening. SOFT TISSUE: Normal. IMPRESSION: Stable postoperative changes. DATA REPOSITORY: RADIATION DOSE DELIVERED:
--- NOTE | 2023-05-18 11:30 | DI.RAD_ITS ---
Exam(s) XR KNEE RT 2V AP,LAT EXAM: XR KNEE RT 2V AP,LAT CLINICAL HISTORY: F/U BILAT TKR. TECHNIQUE: 2D digital imaging was performed. Two images were obtained. AP and lateral views were ob tained. COMPARISON: CR XR STANDING ALIGNMENT from 06/06/2022 CR XR KNEE RT 1V from 06/06/2022 FINDINGS: BONES: There are stable post operative changes of a right total knee replacement present. No fractur e or dislocation. JOINTS: The orthopedic hardware is in good position. No evidence of hardware loosening. Small joint effusion. SOFT TISSUE: Normal. IMPRESSION: Stable postoperative changes. DATA REPOSITORY: RADIATION DOSE DELIVERED:
== END 2023-05-18 15:54 | disposition home or self-care (01) ==
LOC: DIORS 15:54
PROVIDERS: PCP Family Medicine; Visit Provider Student in an Organized Health Care Education/Training Program
DX: Z96.653 Presence of artificial knee joint, bilateral (principal); Z47.1 Aftercare following joint replacement surgery
CPT/HCPCS: 73560

== ENCOUNTER 2023-06-09 11:27 | Outpatient (REF) | payer OTHER, SELFPAY ==
[2023-06-09 14:46] LABS: HCT 46.1 % (40.0-50.0); HGB 15.3 g/dL (13.5-17.5); MCH 29.4 pg (27.0-33.0); MCHC 33.2 % (32.0-36.0); MCV 89 fL (80-95); MPV 9.5 fL (8.0-11.0); Platelet Count 335 10^3/uL (130-400); RBC 5.21 10^6/uL (4.36-5.78); RDW 13.2 % (11.8-14.1); RDW-SD 43.2 fL; WBC 4.69 10^3/uL (4.4-10.8)
[2023-06-09 15:12] LABS: Hemoglobin A1C 5.7 % (<5.7)
[2023-06-09 15:31] LABS: ALT 40 U/L (16-63); AST 27 U/L (15-37); Albumin 4.2 g/dL (3.4-5.0); Alkaline Phosphatase 88 U/L (46-116); Anion Gap 9.4 mmol/L (3-11); BUN 26 mg/dL (7-18); Bilirubin, Total 0.6 mg/dL (0.2-1.0); CO2 24.6 mmol/L (21.0-32.0); CREATININE 0.8 mg/dL (0.70-1.30); Calcium 9.2 mg/dL (8.5-10.1); Calculated LDL 152 mg/dL (<100); Chloride 106 mmol/L (98-107); Cholesterol 210 mg/dL (<200); Estimated GFR 97.61 (mL/min/1.73m2); Glucose 94 mg/dL (74-106); HDL Cholesterol 43 mg/dL (40-60); Potassium 4.3 mmol/L (3.5-5.1); Sodium 140 mmol/L (136-145); Total Protein 7.9 g/dL (6.4-8.2); Triglyceride 78 mg/dL (<150)
== END 2023-06-09 11:28 | disposition home or self-care (01) ==
LOC: NCHCN 11:27
PROVIDERS: PCP Family Medicine; Referring Provider Family Medicine; Visit Provider Family Medicine
DX: Z00.00 Encounter for general adult medical examination without abnormal findings (principal); R73.03 Prediabetes; Z13.220 Encounter for screening for lipoid disorders
CPT/HCPCS: 80053; 80061; 85027; 83036

== ENCOUNTER 2023-07-03 17:15 | Outpatient (REF) | payer OTHER, SELFPAY ==
[2023-07-03 21:10] LABS: Abs Immature Grans 0.03 10^3/uL (0.0-0.06); Absolute Basophil Count 0.08 10^3/uL (0.0-0.2); Absolute Lymphocyte Count 1.78 10^3/uL (1.2-3.4); Absolute Monocyte Count 0.59 10^3/uL (0.1-0.8); Absolute Neutrophil Count 3.76 10^3/uL (1.2-6.7); Basophils % 1.2; Eosinophils % 7.4; HGB 15.1 g/dL (13.5-17.5); Immature Grans % 0.4; Lymphocytes % 26.4; MCH 30.2 pg (27.0-33.0); MCHC 34.3 % (32.0-36.0); MCV 88 fL (80-95); MPV 9.9 fL (8.0-11.0); Monocytes % 8.8; Neutrophils % 55.8; Platelet Count 342 10^3/uL (130-400); RDW 13.2 % (11.8-14.1); RDW-SD 42.8 fL; WBC 6.74 10^3/uL (4.4-10.8)
[2023-07-03 21:26] LABS: ALT 33 U/L (16-63); AST 6 U/L (15-37); Albumin 4.1 g/dL (3.4-5.0); Alkaline Phosphatase 89 U/L (46-116); Anion Gap 9.6 mmol/L (3-11); BUN 31 mg/dL (7-18); Bilirubin, Total 0.3 mg/dL (0.2-1.0); CO2 25.4 mmol/L (21.0-32.0); CREATININE 0.9 mg/dL (0.70-1.30); Calcium 9.1 mg/dL (8.5-10.1); Chloride 107 mmol/L (98-107); Estimated GFR 94.19 (mL/min/1.73m2); Glucose 114 mg/dL (74-106); Potassium 4.3 mmol/L (3.5-5.1); Sodium 142 mmol/L (136-145); Total Protein 7.7 g/dL (6.4-8.2)
== END 2023-07-03 17:16 | disposition home or self-care (01) ==
LOC: NCHCN 17:15
PROVIDERS: PCP Family Medicine; Visit Provider Family Medicine
DX: R07.9 Chest pain, unspecified (principal)
CPT/HCPCS: 80053; 85025

== ENCOUNTER → 2023-07-20 01:05 | Outpatient (CLI) | payer OTHER, SELFPAY ==
--- NOTE | 2023-07-20 | ETT_ITS ---
APPROVED REPORT Exam: Exercise Treadmill Patient Location: Out-Patient Room/Bed: Stress Nurse: Peter Mitchell RN Ordering Provider:ROOSEVELT OSIEL, Contact Number: [phone] BMI: 32.77 Baseline Rhythm: Sinus Rhythm Indications: Chest pain Medical History Medical History: COPD, Hyperlipidemia, GERD, Obesity Cardiac Medications: Valsartan/ Diovan Allergies: No known drug allergies Cardiac Risk Factors: Verapamil Pretest Chest Pain Characteristics: No chest pain Exercise History: Indeterminate Lung Sounds: Clear to auscultation Heart Sounds: Regular Stress Test Details Test: Exercise stress testing was performed using a Ilir protocol. Rest Stress HR Resting HR Supine: 60 bpm Max Heart Rate (APMHR): 154 bpm Resting HR Standin bpm Target HR (85% APMHR): 131 bpm Max HR Achieved: 113 bpm % of APMHR: 73 Recovery HR: 64 bpm HR response to stress: Normal HR response to stress BP Resting BP Supine: 122/72 mmHg Resting BP Standin/82 mmHg Max BP: 178/72 mmHg Recovery BP: 126/66 mmHg BP response to stress: Normal blood pressure response to stress. ECG Resting ECG: Sinus Rhythm Ectopy: none Stress ECG: Sinus Tachycardia ST Change: No significant ST segment changes noted Arrhythmia: Occasional unifocal PVC's. Recovery ECG: Sinus Rhythm Recovery ST Change: No significant ST segment changes noted Recovery Arrhythmia: None Clinical Reason for Termination: Fatigue, SOB. Stress Symptoms: General Fatigue, SOB Exercise duration: 05 min12 sec Highest Stage Reached: 2 Exercise capacity: 7.05 METs Angina Score: None Tobin Treadmill Score: 3.8 Rate Pressure Product: Stress ECG Conclusion 1. Resting EKG showed RBBB 2. Patient exercised on the Ilir protocol, completed workload of 7 METS 3. Normal heart rate and blood pressure response to exercise. Peak heart rate was 73% of predicted fo r age 4. The electrocardiographic portion of the test was nondiagnositc due to inadequate heart rate 5. There were no significant dysrhythmias Tobin Treadmill Score is 3.8 which is Moderate risk.
--- NOTE | 2023-07-20 08:12 | DI.RAD_ITS ---
Exam(s) XR CHEST 2V PA LATERAL EXAM: XR CHEST 2V PA LATERAL CLINICAL HISTORY: R07.9 Chest pain unspecified TECHNIQUE: 2D digital imaging was performed of the chest. Three images were obtained. PA and later al views were obtained. COMPARISON: CR XR CHEST 2V PA LATERAL from 10/25/2019 FINDINGS: MEDIASTINUM: Normal. HEART: Normal. PULMONARY VASCULATURE: Normal. LUNGS: There is plate atelectasis in the left lower lobe. PLEURAL SPACE: No pleural effusion or pneumothorax. BONE:Within normal limits for the patient's age. OTHER FINDINGS:Normal. IMPRESSION: Plate atelectasis in the left lower lobe. DATA REPOSITORY: RADIATION DOSE DELIVERED:
== END ==
PROVIDERS: PCP Family Medicine; Visit Provider Family Medicine
DX: J98.11 Atelectasis (principal)
CPT/HCPCS: 71046; 93017

== ENCOUNTER → 2023-07-28 04:35 | Outpatient (CLI) | payer OTHER, SELFPAY ==
--- NOTE | 2023-07-28 | DI.US_ITS ---
APPROVED REPORT EXAM: Comprehensive 2D, Doppler, and color-flow Echocardiogram Patient Location: Out-Patient Maintenance Parts Technician: Jacqueline Dickson RDCS (AE) Indications: Chest pain Other Information Study Quality: Fair. Technically limited study due to body habitus. Conclusion Technically limited study Normal left ventricular wall thickness and chamber size. Ejection fraction is within the range of no rmal. No wall motion abnormalities are identified Normal right ventricular size and function Both atria are normal in size There are no structural or hemodynamically significant valvular abnormalities Dilated ascending aorta 3.78 cm Wall motion Left Ventricle Technically limited parasternal imaging. The overall left ventricular systolic function appears maida l. There is normal LV segmental wall motion. There is no ventricular septal defect visualized. LVEF i s 53%. Right Ventricle The right ventricle is normal size. The right ventricular systolic function is normal. Atria The left atrium size is normal. The right atrium size is normal. The interatrial septum is intact wit h no evidence for an atrial septal defect. Aortic Valve The aortic valve is normal in structure. Aortic valve is trileaflet. There is no aortic valvular sten osis. No aortic regurgitation is present. Mitral Valve The mitral valve is normal in structure. No evidence of mitral valve stenosis. Trace mitral regurgita tion. Tricuspid Valve The tricuspid valve is normal in structure. There is no tricuspid valve stenosis. Trace tricuspid reg urgitation. The RVSP is 23.1 mmHg. Pulmonic Valve The pulmonary valve is normal in structure. There is no pulmonic valvular stenosis. There is no pulmo arik valvular regurgitation. Great Vessels The aortic root is normal in size. The ascending aorta is mildly dilated. Aortic arch is normal in ca liber. IVC is normal in size and collapses >50% with inspiration. Pericardium There is no pericardial effusion. 2D Dimensions Ao Root d 3.05 cm M: 3.1 - 3.7 Ao Asc Diam d 3.78 cm M: 2.6 - 3.4 M-Mode TAPSE 2.37 cm (M/F) >1.7 Auto EF LV EDV A4C 110.4 mL LV EDV A2C 156.6 mL LV EDV BP 130.3 mL LV ESV A4C 50.8 mL LV ESV A2C 71.6 mL LV ESV BP 61.1 mL LVEF(%) A4C 54.0 % LVEF(%) A2C 54.3 % LVEF(%) BP 53.1 % LV SV A4C 59.5 ml LV SV A2C 85.0 ml LV SV BP 69.2 ml LV CO A4C 3.3 L/min LV CO A2C 4.5 L/min LV CO BP 3.9 L/min HR A4C 55.37 BPM HR A2C 52.48 BPM LV EDV Index (BP) LA Volume LA Length A4C 5.3 cm LA Length A2C 5.6 cm LA Area A4C s 16.94 cm2 LA Area A2C s 20.26 cm2 LA Vol A4C A-L 45.91 mL LA Vol A2C A-L 62.37 mL LA Vol Biplane A-L 54.9 mL LA Vol/BSA A4C A-L LA Vol/BSA A2C A-L LA Vol/BSA BP A-L 24.6 mL/m2 LA Vol A4C MOD 42.6 mL LA Vol A2C MOD 60.5 mL LA Vol BP MOD 51.7 mL RA Volume RA Area A4C 11.7 cm2 RA ESV A4C (A-L) 28.9mL RA Vol/BSA A4C A-L RA Length A4C 4.0 cm RA ESV A4C (MOD) 27.5mL LV Diastology MV E' medial 0.094 (>0.07 m/s) MV E Vmax 0.83 (0.4-1.3 m/s) MV E/E' MED 8.85 (<14) MV A Vmax 0.80 (0.4-1.3 m/s) MV E' lateral 0.129 (>0.1 m/s) E/A Ratio 1.0 MV E/E' LAT 6.45 (<14) MV E' Average 0.111 m/s MV E/E'(average) 7.46 Aortic Valve AoV Vmax 1.23 m/s LVOT Vmax 1.10 m/s AoV Peak Grad 6.0 mmHg LVOT Peak Grad 4.8 mmHg AoV Area (Vmax) 2.78 cm2 LVOT VTI 0.258 m AoV VTI 0.306 m LVOT Mean Grad 2.7 mmHg AoV Mean Marcus. 0.86 m/s LVOT SV 79.88 mL AoV Mean Grad 3.4 mmHg LVOT Diam s 1.95 cm AoV Area (VTI) 2.61 cm2 Velocity Ratio 0.89 Mitral Valve MV DT 221 (160-240 msec) MV Vmax TIPS 0.89 m/s MV Mean Grad 1.0 (<2mmHg) MV VTI 0.362 m Pulmonary Valve PV Vmax 0.90 (0.5-1.5 m/s) RVOT Vmax 0.69 m/s PV Peak Grad 3.3 mmHg RVOT Peak Gr. 1.9 mmHg PV Mean Marcus 0.74 m/s RVOT VTI 0.161 m PV Mean Grad 2.3 mmHg RVOT Mean Gr. 1.0 mmHg Tricuspid Valve RA Pressure 3.00 mmHg TR Vmax 2.24 m/s TV S' 0.14 m/s TR Peak Grad 20.0 mmHg RVSP (TR) 23.1 mmHg
== END ==
PROVIDERS: PCP Family Medicine; Visit Provider Family Medicine
DX: R07.9 Chest pain, unspecified (principal); I77.819 Aortic ectasia, unspecified site
CPT/HCPCS: 93306

== ENCOUNTER 2024-06-13 14:08 | Outpatient (REF) | payer OTHER, SELFPAY ==
[2024-06-13 15:17] LABS: Hemoglobin A1C 5.7 % (<5.7)
[2024-06-13 15:23] LABS: ALT 46 U/L (16-63); AST 28 U/L (15-37); Albumin 4.2 g/dL (3.4-5.0); Alkaline Phosphatase 93 U/L (46-116); Anion Gap 11.2 mmol/L (3-11); BUN 24 mg/dL (7-18); Bilirubin, Total 0.7 mg/dL (0.2-1.0); CO2 24.8 mmol/L (21.0-32.0); CREATININE 0.8 mg/dL (0.70-1.30); Calcium 9.1 mg/dL (8.5-10.1); Calculated LDL 158 mg/dL (<100); Chloride 105 mmol/L (98-107); Cholesterol 220 mg/dL (<200); Glucose 96 mg/dL (74-106); HDL Cholesterol 49 mg/dL (>or=40); Potassium 4.5 mmol/L (3.5-5.1); Sodium 141 mmol/L (136-145); Total Protein 7.3 g/dL (6.4-8.2); Triglyceride 67 mg/dL (<150)
== END 2024-06-13 14:09 | disposition home or self-care (01) ==
LOC: NCHCN 14:08
PROVIDERS: PCP Family Medicine; Visit Provider Family Medicine
DX: R73.03 Prediabetes (principal); E78.5 Hyperlipidemia, unspecified
CPT/HCPCS: 80053; 80061; 83036